=== PATIENT | male | born 1990 | race Two or more races ===

== ENCOUNTER 2017-10-12 16:09 | Inpatient (IN) | payer MEDICAID ==
[~2017-10-12] VITALS: Ht 188 cm; Wt 73.9 kg
[2017-10-12] MEDS ORDERED: HYDROCODONE/APAP 5/325MG 1 EACH TABLET ONE (16:42)
[2017-10-12] MEDS ORDERED: diphenhydrAMINE HCL 25 MG CAPSULE ONE (16:43)
[2017-10-12] MEDS ORDERED: diphenhydrAMINE HCL 25 MG CAPSULE PO ONE (17:00)
[2017-10-12] MEDS ORDERED: HYDROCODONE/APAP 5/325MG 1 EACH TABLET PO ONE (17:00)
[2017-10-12] MEDS ORDERED: LIDOCAINE 1%-EPI 1:100,000 20 ML VIAL ONE (18:18)
[2017-10-12] MEDS ORDERED: VANCOMYCIN 1 GM in IV D5W 250 ML IV ONE (18:30)
[2017-10-12] MEDS ORDERED: IV NS 0.9% 1,000 ML BAG IV ONE (18:30)
[2017-10-12] MEDS ORDERED: PIPERACILLIN /TAZOBACTAM 3.375 G in IV D5W 50 ML IV ONE (18:30)
--- NOTE | 2017-10-12 18:34 | NUR ---
CALLED DR. MERCEDES ROBLEDO, TRANSFERRED CALL TO MATTY HARDEN
[2017-10-12 19:00] LABS: CALCIUM, SERUM 9.2 mg/dL (8.5-10.1); CREATININE 0.8 mg/dL (0.6-1.3); POTASSIUM 3.1 mmol/L (3.5-5.1)
[2017-10-12 19:01] LABS: BASOPHILS % (AUTO) 0.1 % (0.0-2.0); EOSINOPHILS % (AUTO) 0.2 % (0.0-6.0); HEMATOCRIT 44 % (39-51); LYMPHOCYTES # (AUTO) 1.4 /CMM (0.8-4.8); MEAN CORPUSCULAR HEMOGLOBIN 35 PG (26.0-33.0); MEAN CORPUSCULAR HGB CONC 34 g/dl (31.0-36.0); MEAN CORPUSCULAR VOLUME 103 fL (80-96); MONOCYTES # (AUTO) 2.7 /CMM (0.1-1.30); MONOCYTES % (AUTO) 11.5 % (2.0-12.0); NEUTROPHILS # (AUTO) 19.2 /CMM (1.8-8.9); NEUTROPHILS % (AUTO) 82.2 % (43.0-81.0); PLATELET COUNT (AUTO) 266 /CMM (150-450); RDW COEFFICIENT OF VARIATION 13.3 (11.5-15.0); RED BLOOD CELL COUNT(AUTO) 4.28 MIL/uL (4.5-6.0); WHITE BLOOD COUNT (AUTO) 23.4 K/uL (4.3-11.0)
[2017-10-12 19:06] LABS: ALBUMIN 2.7 g/dL (3.4-5.0); BILIRUBIN,DIRECT 0.1 mg/dL (0.0-0.2); BILIRUBIN,TOTAL 0.3 mg/dL (0.2-1.0); TOTAL PROTEIN, SERUM 7.3 g/dL (6.4-8.2)
[2017-10-12] MEDS ORDERED: IOHEXOL-300 100 ML VIAL IV ONE ×2 (19:18→20:54)
[2017-10-12] MEDS ORDERED: IV NS 0.9% 1,000 ML IV PRN (19:29)
[2017-10-12] MEDS ORDERED: MORPHINE SULFATE INJ 2 MG/ML DISP.SYRIN IV PRN (19:30)
[2017-10-12] MEDS ORDERED: ONDANSETRON HCL/PF 4 MG/2 ML VIAL IVP PRN (19:30)
[2017-10-12] MEDS ORDERED: HYDROCODONE/APAP 10/325MG 1 EA TABLET PO PRN (19:30)
[2017-10-12] MEDS ORDERED: HYDROCODONE/APAP 5/325MG 1 EACH TABLET PO PRN (19:30)
[2017-10-12] MEDS ORDERED: MAG HYDROX/AL HYDROX/SIMETH 30 ML UDC PO PRN (19:30)
[2017-10-12] MEDS ORDERED: Z GUARD REMEDY 2 OZ OINT TP PRN (19:30)
[2017-10-12] MEDS ORDERED: MAGNESIUM HYDROXIDE 30 ML UDC PO PRN (19:30)
[2017-10-12] MEDS ORDERED: HYDROMORPHONE INJ 2 MG/ML DISP.SYRIN ONE ×2 (19:48→21:23)
[2017-10-12] MEDS ORDERED: HYDROMORPHONE INJ 2 MG/ML DISP.SYRIN IV ONE (20:00)
[2017-10-12] MEDS ORDERED: ONDANSETRON HCL/PF 4 MG/2 ML VIAL IVP ONE (20:00)
[2017-10-12] MEDS ORDERED: POTASSIUM CHLORIDE 20 MEQ TAB.PRT.SR PO ONE ×2 (20:00→20:09)
--- NOTE | 2017-10-12 21:19 | NUR ---
PT PAIN 12/19, SPOKE WITH Sourav Shi, QUINTON, per sourav admin 0.5mg dilaudid IVP once befor patient is tx to [facility] unit. i place order for 0.5mg dilaudid ivp once as instructed by Sourav Shi, QUINTON. Medicated pt as ordered
[2017-10-12 21:30] VITALS: BP 129/67
[2017-10-12] MEDS ORDERED: HYDROMORPHONE INJ 0.5 MG/0.5 ML SYRINGE IV ONE (21:30)
--- NOTE | 2017-10-12 21:30 | NUR ---
MS RN NOTES RECEIVED PT FROM THE ER VIA WHEELCHAIR, ABLE TO TRANSFER HIMSELF TO BED, SAFELY. PT IS AMBULATORY. PT IS A/O X 4, VERBALLY RESPONSIVE. NO DISTRESS, NO SOB NOTED. RESPIRATION IS EVEN AND UNLABORED. IV SIT BING RFA INTACT AND PATENT, NO S/S OF INFILTRATION NOTED. PT REFUSED BODY CHECK/AND DOESN'T WANT TO CHANGE IN A HOSPITAL GOWN, BUT AGREED TO HAVE PICTURE TAKEN TO LEFT ARM , LEFT ELBOW, RIGHT ELBOW AND LEFT ARM, RISK AND BENEFITS EXPLAINED, BUT PT STILL REFUSED THE REST OF THE BODY CHECK X3. ALL NEEDS ATTENDED AND MET, KEPT COMFORTABLE. SAFETY PRECAUTIONS OBSERVED. CALL LIGHT WITHIN REACH. WILL CONT TO MONITOR.
--- NOTE | 2017-10-12 21:35 | NUR ---
report given top [facility] for admission. transorted pt to ms bed without incidetn
--- NOTE | 2017-10-12 22:00 | NUR ---
LEFT ARM ELEVATED WITH 3 PILLOWS. EXPLAINED TO PT, PT VERBALIZED UNDERSTANDING.
[2017-10-12] MEDS ORDERED: PIPERACILLIN /TAZOBACTAM 3.375 G VIAL IV ONE (23:30)
--- NOTE | 2017-10-12 23:30 | NUR ---
administration of zosyn: new order from is to administer zosyn 3.375gm ivpb, pt is a new admit, rn geriatric bria override the medication. zosyn 3.375gm ivpb administered at this time as ordered.
[2017-10-13] VITALS (12 sets, daily range): BP systolic 110–134; BP diastolic 57–94
[2017-10-13] MEDS: diphenhydrAMINE HCL 25 MG CAPSULE PO PRN ×3 (00:22→21:39)
[2017-10-13] MEDS ORDERED: PIPERACILLIN /TAZOBACTAM 3.375 G in IV NS 0.9% 50 ML IV SCH (05:00)
[2017-10-13] MEDS ORDERED: PIPERACILLIN /TAZOBACTAM 3.375 G VIAL IV ONE (05:13)
--- NOTE | 2017-10-13 06:03 | NUR ---
PLACED A CALL TO [facility], REGARDING ZOSYN NEXT DOSE ADMINISTRATION, SPOKE WITH TONY, PER TONY IT'S OK NOT TO CHANGE THE TIME OF NEXT ADMINISTRATION DOSE , EVEN IF IT WAS GIVEN AT 2330 LAST NIGHT, PER TONY PT'S RENAL FUNCTION IS GOOD, CHARGE NURSE SHIRA MADE AWARE.
[2017-10-13 06:29] LABS: BASOPHILS % (AUTO) 0.1 % (0.0-2.0); EOSINOPHILS % (AUTO) 0.1 % (0.0-6.0); HEMATOCRIT 42 % (39-51); HEMOGLOBIN 14.6 g/dL (13.5-17.5); LYMPHOCYTES # (AUTO) 0.8 /CMM (0.8-4.8); LYMPHOCYTES % (AUTO) 3.3 % (20.0-44.0); MEAN CORPUSCULAR HEMOGLOBIN 35 PG (26.0-33.0); MEAN CORPUSCULAR HGB CONC 35 g/dl (31.0-36.0); MEAN CORPUSCULAR VOLUME 103 fL (80-96); MONOCYTES # (AUTO) 1.7 /CMM (0.1-1.30); MONOCYTES % (AUTO) 7.3 % (2.0-12.0); NEUTROPHILS # (AUTO) 20.6 /CMM (1.8-8.9); NEUTROPHILS % (AUTO) 89.2 % (43.0-81.0); PLATELET COUNT (AUTO) 246 /CMM (150-450); RDW COEFFICIENT OF VARIATION 13.4 (11.5-15.0); RED BLOOD CELL COUNT(AUTO) 4.13 MIL/uL (4.5-6.0)
[2017-10-13 06:31] LABS: CALCIUM, SERUM 8.8 mg/dL (8.5-10.1); CREATININE 0.9 mg/dL (0.6-1.3); PHOSPHORUS 2.6 mg/dL (2.5-4.9); POTASSIUM 3.1 mmol/L (3.5-5.1)
[2017-10-13 06:38] LABS: MAGNESIUM 1.2 mg/dL (1.8-2.4)
--- NOTE | 2017-10-13 06:45 | NUR ---
MS RN NOTES PT IS AWAKE, A/O X 4, VERBALLY RESPONSIVE. NO DISTRESS, NO SOB NOTED. RESPIRATION IS EVEN AND UNLABORED. IV SIT BING RFA INTACT AND PATENT, NO S/S OF INFILTRATION NOTED. FRANCISCA ELEVATED WITH 3 PILLOWS. PT REFUSED SPONGE BATH . ALL NEEDS ATTENDED AND MET, KEPT COMFORTABLE. SAFETY PRECAUTIONS OBSERVED. CALL LIGHT WITHIN REACH. WILL ENDORSE TO NEXT SHIFT FOR LYDIA.
[2017-10-13 06:55] LABS: THYROID STIMULATING HORMONE 1.116 uIU/mL (0.358-3.74)
--- NOTE | 2017-10-13 07:11 | NUR ---
PLACED A CALL TO [facility] , REGARDING PT'S M.2, SPOKE WITH THE PER DIEM PHYSICAL THERAPIST ASSISTANT , HE'LL PAGE ELIOT BIGGS , AWAITING FOR PHLEBOTOMIST'S CALL BACK. ENDORSED TO GERI PACKER ACCORDINGLY.
[2017-10-13] MEDS ORDERED: POTASSIUM CHLORIDE 20 MEQ TAB.PRT.SR PO ONE (07:30)
--- NOTE | 2017-10-13 07:30 | NUR ---
RECEIVED A CALL BACK FROM [facility], FILBERT GROWER RELAYED M.2, RECEIVED AN ORDER FOR MG 4 GRAMS IVPB, NOTED AND CARRIED OUT, ALSO INFORMED ELIOT REGARDING PT'S REQUEST TO HAVE SHOWER, PER FILBERT GROWER NO SHOWER YET FOR NOW UNTIL HE WAS SEEN BY SPECIALIST, ALSO PT IS COMPLAINING OF ANXIETY , NONPHARMACOLOGICAL INTERVENTION RENDERED INEFFECTIVE, PT REQUESTING FOR ANTI ANXIETY MEDICATION, FILBERT GROWER WITH NNO AT THIS TIME.
[2017-10-13] MEDS ORDERED: FEE PK DOSING 1 MIN EA MC ONE (07:33)
--- NOTE | 2017-10-13 07:34 | NUR ---
RECEIVED A CALL BACK FROM [facility], BRICK LAYER RELAYED M.2, RECEIVED AN ORDER FOR MG 4 GRAMS IVPB, NOTED AND CARRIED OUT, ALSO INFORMED ELIOT REGARDING PT'S REQUEST TO HAVE SHOWER, PER BRICK LAYER NO SHOWER YET FOR NOW UNTIL HE WAS SEEN BY SPECIALIST, ALSO PT IS COMPLAINING OF ANXIETY , NONPHARMACOLOGICAL INTERVENTION RENDERED INEFFECTIVE, PT REQUESTING FOR ANTI ANXIETY MEDICATION, BRICK LAYER WITH NNO AT THIS TIME. ENDORSED TO GERI PACKER ACCORDINGLY.
[2017-10-13] MEDS ORDERED: Magnesium 1GM/D5W 100ML PREMIX 100 ML IV SCH (08:00)
--- NOTE | 2017-10-13 08:00 | NUR ---
M/S RN - Assessment Patient awake, A/ O x 4, not in any form of distress, c/o LUE pain but refused [place] and Morphine sulfate. Patient stated "I'm very sensitive to morphine and [place], it makes my body very itchy." Allergies updated on file. IVF Ns at 75 ml/hr infusing well on the RFA, with no signs of infiltration. Will Labs reviewed noted with magnesium 1.2 and potassium 3.1, will replete as ordered. Awaiting for surgical consult for LUE wound/cellulitis. Patient currently on Zosyn and Vanco IV. LUE elevated on pillows. Fall precautions maintained. All needs attended and met. Juan Carlos (father) updated on plan of care. Will continue with current medical management.
[2017-10-13] MEDS: VANCOMYCIN 1 GM in IV D5W 250 ML IV SCH ×3 (08:01→23:25)
[2017-10-13] MEDS: PANTOPRAZOLE 40 MG VIAL IV SCH (08:05)
[2017-10-13] MEDS: DOCUSATE SODIUM 100 MG CAPSULE PO SCH ×2 (08:05→17:04)
[2017-10-13] MEDS: Magnesium 1GM/D5W 100ML PREMIX 100 ML IV SCH ×4 (08:25→11:52)
--- NOTE | 2017-10-13 10:19 | NUR ---
WOUND CARE CONSULT: PT FOLLOWED BY PLASTIC SURGERY TEAM. DEFER TO SURGICAL TEAM FOR WOUND TREATMENT PLAN. WILL SEE PRN. CURRENT PATRICIA SCORE IS 20.
[2017-10-13] MEDS ORDERED: SILVER NITRATE APPLICATOR 1 EA BOX TP ONE (11:00)
[2017-10-13] MEDS ORDERED: LIDOCAINE 1%-EPI 1:100,000 20 ML VIAL TP ONE (11:00)
[2017-10-13] MEDS: ACETAMINOPHEN 325 MG TABLET PO PRN ×2 (11:14→17:59)
--- NOTE | 2017-10-13 11:20 | NUR ---
Social service consult requested by QUINTON Shi for polysubstance drug abuse. Pt. is a 26 year old male who was admitted to [facility] for cellulitis due to IV drug use. SW met with pt. bedside. Pt. is alert and oriented x 4. Pt. informed SW that he doesn't want to speak to her right now and to come back later. SW to follow up later this afternoon to assess pt.
[2017-10-13] MEDS: PIPERACILLIN /TAZOBACTAM 3.375 G in IV NS 0.9% 50 ML IV SCH ×2 (12:00→17:19)
[2017-10-13] MEDS ORDERED: ANESTHESIA TRAY IN PYXIS 1 EA TRAY MC ONE (13:10)
[2017-10-13] MEDS ORDERED: BACITRACIN 50000 UNITS/VIAL ONE ×2 (13:27→14:40)
[2017-10-13] MEDS ORDERED: LIDOCAINE HCL/PF 1% 30 ML SDV ONE (13:27)
[2017-10-13 13:40] LABS: INR 1.06 (0.87-1.13)
[2017-10-13] MEDS ORDERED: MIDAZOLAM HCL 2 MG/2ML VIAL ONE (13:47)
[2017-10-13] MEDS ORDERED: FENTANYL PF 100MCG/2ML AMPUL ONE (13:47)
[2017-10-13] MEDS ORDERED: SUCCINYLCHOLINE CHLORIDE 20 MG/ML VIAL ONE (13:47)
[2017-10-13] MEDS ORDERED: CLINDAMYCIN IV RTU IN D5W 900 MG/50 ML PIGGYBACK IV SCH (14:00)
--- NOTE | 2017-10-13 14:00 | NUR ---
M/S RN - Notes Patient in no acute distress, afebrile, A/O x 4, sent to OR for Incision and drainage of left upper extremity with extensive washout and debridement with Dr. Prosper Epps. All consents signed by patient and pre-operative checklist completed. Saline lock on the RFA is patent, intact, with no signs of infiltration. Endorsed to OR staff accordingly.
[2017-10-13] MEDS ORDERED: LIDOCAINE 1%-EPI 1:100,000 20 ML VIAL ONE (14:04)
[2017-10-13] MEDS ORDERED: BUPIVACAINE 0.25% 75 MG/30 ML VIAL ONE (14:04)
--- NOTE | 2017-10-13 14:05 | NUR ---
M/S RN - Valuables Cellphone and credit card (visa) given to Florinda Haile (girlfriend) [phone].
--- NOTE | 2017-10-13 16:00 | NUR ---
M/S RN - ICU Per OR, patient will be transferred to ICU [id number] for close monitoring.
--- NOTE | 2017-10-13 16:10 | NUR ---
M/S RN - ICU Report given to GERI Gross and all belongings were transferred to ICU.
[2017-10-13] MEDS: CLINDAMYCIN 900 MG in IV NS 0.9% 50 ML IV SCH ×2 (16:48→23:08)
[2017-10-13] MEDS: IV NS 0.9% 1,000 ML IV PRN (17:14)
--- NOTE | 2017-10-13 17:35 | NUR ---
received pt from OR, s/p I and D with washout, alert, follows commands, SR, on RA, uses urinal, no BM, does not want to take any narcotics, wants Tylenol and Xanax only, regular diet, dressing intact, arm is elevate per surgeon, v/s stable, no pain, pt turned and repositioned, friends at the bedside.
[2017-10-13] MEDS: ALPRAZOLAM 0.25 MG TABLET PO SCH (17:58)
--- NOTE | 2017-10-13 20:00 | NUR ---
agriculture worker notes received pts on bed awake alert and responsive able to make needs known , on tele sr on the monitor , on r/a sating 98%, no sob no distress noted , pts s/p i&d debridement and wash out , dressing intact and patent , due meds given as ordered , ivf of ns at 125cc/hr infusing well with r fa g#18 and r hand g#18 intact and patent , uses urinals at this time, arm kept elevated all the time , v/s stable afebrile , will continue to monitor pts , friends at bedside updated with pts current condition .
[2017-10-13] MEDS: ACETAMINOPHEN 325 MG TABLET PO SCH (21:23)
[2017-10-14] VITALS (13 sets, daily range): BP systolic 114–151; BP diastolic 50–114
[2017-10-14] MEDS: PIPERACILLIN /TAZOBACTAM 3.375 G in IV NS 0.9% 50 ML IV SCH ×5 (00:06→23:17)
[2017-10-14] MEDS: ACETAMINOPHEN 325 MG TABLET PO SCH ×4 (00:08→18:15)
[2017-10-14] MEDS: oxyCODONE IR immediate release 5 MG PO PRN (04:36)
[2017-10-14] MEDS: diphenhydrAMINE HCL 25 MG CAPSULE PO PRN (04:40)
[2017-10-14] MEDS: IV NS 0.9% 1,000 ML IV PRN ×2 (05:27→21:14)
[2017-10-14 05:42] LABS: HEMATOCRIT 40 % (39-51); HEMOGLOBIN 13.4 g/dL (13.5-17.5); LYMPHOCYTES # (AUTO) 0.5 /CMM (0.8-4.8); LYMPHOCYTES % (AUTO) 2.4 % (20.0-44.0); MEAN CORPUSCULAR HEMOGLOBIN 36 PG (26.0-33.0); MEAN CORPUSCULAR HGB CONC 34 g/dl (31.0-36.0); MEAN CORPUSCULAR VOLUME 105 fL (80-96); MONOCYTES # (AUTO) 0.7 /CMM (0.1-1.30); NEUTROPHILS # (AUTO) 21.9 /CMM (1.8-8.9); NEUTROPHILS % (AUTO) 94.6 % (43.0-81.0); PLATELET COUNT (AUTO) 227 /CMM (150-450); RDW COEFFICIENT OF VARIATION 13.4 (11.5-15.0); RED BLOOD CELL COUNT(AUTO) 3.78 MIL/uL (4.5-6.0); WHITE BLOOD COUNT (AUTO) 23.1 K/uL (4.3-11.0)
[2017-10-14 06:16] LABS: CALCIUM, SERUM 8.8 mg/dL (8.5-10.1); CREATININE 0.9 mg/dL (0.6-1.3); MAGNESIUM 2.2 mg/dL (1.8-2.4); POTASSIUM 3.9 mmol/L (3.5-5.1)
[2017-10-14 06:32] LABS: BAND % (MANUAL) 7 % (0.0-5.0); LYMPHOCYTES % (MANUAL) 4 % (16-48); MONOCYTES % (MANUAL) 3 % (0-11.0); NEUTROPHILS % (MANUAL) 86 (42-76)
[2017-10-14] MEDS: CLINDAMYCIN 900 MG in IV NS 0.9% 50 ML IV SCH ×3 (06:50→22:43)
--- NOTE | 2017-10-14 06:52 | NUR ---
MODELER NOTES PTS IN BED AWAKE ALERT AND RESPONSIVE , V/S STABLE AFEBRILE LEFT ARMS KEPT ELEVATED ,LEFT ARM DRESSING DONE ORDERED, ALL NEEDS ATTENDED TO CALL LIGHT WITHIN REACH, SAFETY MAINTAINED , NO SIGNIFICANT CHANGE NOTED WILL ENDORSE TO RN DAY SHIFT FOR CONTINUITY OF CARE.
[2017-10-14] MEDS: VANCOMYCIN 1 GM in IV D5W 250 ML IV SCH (08:05)
--- NOTE | 2017-10-14 08:39 | NUR ---
received pt from night, shift, a/o x4, follows commands, SR, RA, urinates in urinal, tolerates diet, v/s stable, no pain, pt turned and repositioned.
[2017-10-14] MEDS: PANTOPRAZOLE 40 MG VIAL IV SCH (09:30)
[2017-10-14] MEDS: DOCUSATE SODIUM 100 MG CAPSULE PO SCH ×2 (09:30→16:39)
[2017-10-14] MEDS: ALPRAZOLAM 0.25 MG TABLET PO SCH ×2 (09:30→16:39)
[2017-10-14] MEDS: NICOTINE PATCH (7MG) 7 MG PATCH.TD24 TD PRN (10:34)
--- NOTE | 2017-10-14 11:06 | NUR ---
pt transferred to [facility], v/s stable, no pain.
--- NOTE | 2017-10-14 11:15 | NUR ---
MS RN NOTES: PT WAS TRANSFERRED FROM ICU, AWAKE, ALERT AND ORIENTED X3. ABLE TO MAKE NEEDS KNOWN. NO ACUTE DISTRESS NOTED. NO COMPLAINTS OF PAIN OR DISCOMFORT AT THIS TIME. BREATHING EVEN AND UNLABORED WITH NORMAL RESPIRATIONS. IV ON RFA G18 AND RIGHT HAND G18 INTACT AND PATENT. VITAL SIGNS WNL. KEPT CLEAN, DRY AND COMFORTABLE. SAFETY AND FALL PRECAUTIONS OBSERVED AND MAINTAINED;. WILL CONTINUE TO MONITOR PT.
[2017-10-14] MEDS: DAKINS QUARTER STRENGTH (0.125%) 480 ML BOTTLE TOP SCH (13:58)
--- NOTE | 2017-10-14 14:30 | NUR ---
MS RN NOTES: PATIENT IN BED, ALERT AND AWAKE. FAMILY AT BEDSIDE DURING THIS TIME. WOUND TREATMENT DONE BY SURY ORO NP. PT ABLE TO TOLERATE PROCEDURE WELL. PICTURES OF LUE TAKEN AND PLACED ON CHART. IV ON RIGHT AC AND RIGHT HAND INTACT AND PATENT, NO SIGNS OF INFILTRATION NOTED. LEFT ARM KEPT ELEVATED. KEPT CLEAN, DRY AND COMFORTABLE. PATIENT REFUSED TO PUT ON DVT PUMPS FOR NOW, EXPLAINED RISKS AND BENEFITS BUT STILL PATIENT REFUSED. WILL CONTINUE TO MONITOR PT.
[2017-10-14] MEDS: VANCOMYCIN 1.25 GM in IV NS 0.9% 500 ML IV SCH ×2 (16:38→23:14)
--- NOTE | 2017-10-14 17:19 | NUR ---
MS RN NOTES: PATIENT NOTED TO HAVE EPISODES OF ANXIETY AND REQUESTED TO HAVE HIS XANAX DOSE INCREASED, DR. LONG NOTIFIED AND ORDERED XANAX 0.5MG TID. ORDER CARRIED OUT. WILL CONTINUE TO MONITOR PT.
--- NOTE | 2017-10-14 18:47 | NUR ---
MS RN NOTES: PATIENT ON BED, ALERT AND AWAKE. PATIENT HAS EPISODES OF ANXIETY AND AGITATION. FAMILY IS REQUESTING TO TALK TO DR. MERCEDES RAMON MD MADE AWARE. STILL AWAITING FOR RESPONSE. IV ON RIGHT AC AND RIGHT HAND INTACT AND PATENT, IVF INFUSING WELL. KEPT CLEAN, DRY AND COMFORTABLE. SAFETY AND FALL PRECAUTIONS OBSERVE AND MAINTAINED. WILL ENDORSE TO GOLF CADDIE FOR LYDIA.
[2017-10-14] MEDS ORDERED: IBUPROFEN 400 MG TABLET PO PRN (21:00)
[2017-10-14] MEDS: KETOROLAC TROMETHAMINE INJ 30 MG/ML VIAL IM PRN (22:35)
[2017-10-14] MEDS: diphenhydrAMINE HCL 50 MG/ML VIAL IV PRN (22:41)
--- NOTE | 2017-10-15 00:17 | NUR ---
RN NOTES RECEIVED PATIENT IN BED COMPLAINING OF SEVERE PAIN. WANTS MEDICATION CHANGE, NO OPIATE AND INCREASE DOSAGE OF BENEDRYL THE PAIN MEDICATION CAUSES HIM TO BE ITCHY. CALLED MD AND OBTAINED ORDER FOR TORADOL 30MG, BENADRYL IV 25MG, IBUPORFEN 800MG. NOTED AND CARRIED OUT. ADMINISTERED MEDS, PAIN MEDS. EFFECTIVE. PATIENT VERBALIZES RELIEF. HELD TYLENOL SINCE IBUPROFEN WAS ALREADY GIVEN. ALERT AND ORIENTED. VERBALLY ABLE TO COMMUNICATE NEEDS. NO DISTRESS NOTED. BREATHING EVEN AND UNLABORED. ROOM AIR TOLERATING WELL. KEPT CLEAN AND DRY WILL CONTINUE TO MONITOR.
[2017-10-15 04:00] VITALS: BP_SYST 126; BP_SYST 134; BP_DIAS 84; BP_DIAS 85
[2017-10-15] MEDS: KETOROLAC TROMETHAMINE INJ 30 MG/ML VIAL IM PRN ×3 (04:29→16:39)
[2017-10-15] MEDS ORDERED: IBUPROFEN 400 MG TABLET PO PRN (05:00)
[2017-10-15] MEDS: PIPERACILLIN /TAZOBACTAM 3.375 G in IV NS 0.9% 50 ML IV SCH ×3 (05:33→17:37)
[2017-10-15] MEDS: diphenhydrAMINE HCL 50 MG/ML VIAL IV PRN ×2 (05:33→22:01)
[2017-10-15] MEDS: ACETAMINOPHEN 325 MG TABLET PO SCH ×4 (06:00→18:00)
[2017-10-15] MEDS: IV NS 0.9% 1,000 ML IV PRN (06:05)
--- NOTE | 2017-10-15 06:06 | NUR ---
RN CLOSING NOTES NO SIGNIFICANT CHANGE OF CONDITION. VITAL SIGNS WNL. PAIN TO RIGHT EXTREMITIES RELIEVED BY TARADOL. REFUSED TO TAKE TYLENOL, IBUPROFEN TAKEN. NEEDS ATTENDED. KEPT CLEAN AND DRY.
[2017-10-15] MEDS: CLINDAMYCIN 900 MG in IV NS 0.9% 50 ML IV SCH ×3 (06:22→23:07)
[2017-10-15 06:42] LABS: EOSINOPHILS % (AUTO) 0.3 % (0.0-6.0); HEMATOCRIT 36 % (39-51); LYMPHOCYTES # (AUTO) 1.1 /CMM (0.8-4.8); LYMPHOCYTES % (AUTO) 6.9 % (20.0-44.0); MEAN CORPUSCULAR HEMOGLOBIN 35 PG (26.0-33.0); MEAN CORPUSCULAR HGB CONC 34 g/dl (31.0-36.0); MEAN CORPUSCULAR VOLUME 104 fL (80-96); MONOCYTES % (AUTO) 6.4 % (2.0-12.0); NEUTROPHILS % (AUTO) 86.4 % (43.0-81.0); PLATELET COUNT (AUTO) 226 /CMM (150-450); RDW COEFFICIENT OF VARIATION 13.8 (11.5-15.0); RED BLOOD CELL COUNT(AUTO) 3.43 MIL/uL (4.5-6.0); WHITE BLOOD COUNT (AUTO) 16.2 K/uL (4.3-11.0)
[2017-10-15 06:58] LABS: CALCIUM, SERUM 8.5 mg/dL (8.5-10.1); CREATININE 0.9 mg/dL (0.6-1.3); POTASSIUM 3.1 mmol/L (3.5-5.1)
--- NOTE | 2017-10-15 07:30 | NUR ---
MS RN NOTE: RECEIVED PATIENT IN BED, ASLEEP AND COMFORTABLE, BUT AROUSABLE WITH TACTILE STIMULI. RESPIRATION IS EVEN AND UNLABORED. NO FACIAL GRIMACING NOTED. HOB ELEVATED. (R) UA IV LINE NOTED PATENT AND INTACT INFUSING NS@125ML/HR. FRANCISCA NOTED WITH KERLIX AND DRESSING WAS DRY AND INTACT. BED ALARMED AND LOCKED AT ALL TIMES. ON CLOSE MONITORING WITH STAFF. CALL LIGHT WITHIN REACH. NEEDS ANTICIPATED.
[2017-10-15 08:00] VITALS: BP 156/83
[2017-10-15] MEDS: VANCOMYCIN 1.25 GM in IV NS 0.9% 500 ML IV SCH ×2 (08:10→16:06)
[2017-10-15 09:29] LABS: BAND % (MANUAL) 8 % (0.0-5.0); LYMPHOCYTES % (MANUAL) 4 % (16-48); MONOCYTES % (MANUAL) 3 % (0-11.0); NEUTROPHILS % (MANUAL) 85 (42-76)
[2017-10-15] MEDS: ALPRAZOLAM 0.25 MG TABLET PO SCH ×3 (09:46→16:33)
[2017-10-15] MEDS: PANTOPRAZOLE 40 MG VIAL IV SCH (09:46)
[2017-10-15] MEDS: DOCUSATE SODIUM 100 MG CAPSULE PO SCH ×2 (09:46→16:37)
[2017-10-15] MEDS: DAKINS QUARTER STRENGTH (0.125%) 480 ML BOTTLE TOP SCH (09:47)
[2017-10-15] MEDS: HYDROGEL DRESSING 90 GM TUBE TP SCH (10:00)
[2017-10-15] MEDS ORDERED: POTASSIUM CHLORIDE 20 MEQ TAB.PRT.SR PO SCH (10:30)
[2017-10-15] MEDS: NICOTINE PATCH (7MG) 7 MG PATCH.TD24 TD PRN (10:32)
[2017-10-15] MEDS ORDERED: TDAP [DIPH/PERTUSSIS/TET] 0.5 ML VIAL IM ONE (11:00)
--- NOTE | 2017-10-15 11:00 | NUR ---
MS RN NOTE: INFORMED DR. MUNOZ RE: THE PATIENT'S PARENTS STATING "OUR SON IS WITHDRAWING FROM ALCOHOL RIGHT NOW. PLEASE INFORM THE DOCTOR ABOUT IT." MD WITH NEW ORDERS, NOTED AND CARRIED OUT. MD WAS ALSO INFORMED THAT PER PATIENT'S REQUEST IF IT'S OK TO GIVE TORADOL VIA IV INSTEAD OF IM BECAUSE IT STINGS. MD AGREED AND GAVE AN ORDER NOTED AND CARRIED OUT.
[2017-10-15] MEDS ORDERED: IOHEXOL-300 100 ML VIAL IV ONE (11:10)
[2017-10-15] MEDS: MULTIVITAMINS,THERAGRAN 1 UDTAB TABLET PO SCH (11:33)
[2017-10-15] MEDS ORDERED: Thiamine 100 MG in IV D5W 50 ML IV SCH (12:00)
[2017-10-15] MEDS: FOLIC ACID 1 MG TABLET PO SCH (12:22)
[2017-10-15 16:00] VITALS: BP 156/76
[2017-10-15] MEDS: LACTOBACILLUS RHAMNOSUS GG 1 EACH CAP.SPRINK PO SCH (16:33)
--- NOTE | 2017-10-15 19:48 | NUR ---
MS RN NOTE: PATIENT IS SEATED ON THE BED WITH HIS FAMILY PRESENT IN THE ROOM. PAIN WAS MANAGED AND PATIENT WAS CALM AND QUIET DURING THE ENTIRE SHIFT. (R) UA IV LINE NOTED INTACT AND PATENT. DR. MUNOZ WAS PAGED PER REQUEST OF THE PATIENT'S PARENTS BECAUSE THEY SPOKE WITH MD, HE SAID THAT HE WILL CHANGE THE PATIENT'S TORADOL TO TRAMADOL. AWAITING FOR MD'S RESPONSE. REPORT GIVEN TO PM SHIFT NURSE FOR CONTINUITY OF CARE AND TO FOLLOW-UP WITH MD RE: THE CHANGE OF TORADOL TO TRAMADOL DISCUSSED WITH THE PATIENT'S PARENTS.
--- NOTE | 2017-10-15 20:00 | NUR ---
MS/RN PATIENT REFUSED VITAL SIGNS AT THIS TIME.
--- NOTE | 2017-10-15 20:07 | NUR ---
MS/RN PATIENT IS AWAKE, ALERT, ORIENTED, COMFORTABLE, NO DISTRESS NOTED, IVF INFUSING WELL, CALL LIGHT IN REACH. WILL MONITOR.
--- NOTE | 2017-10-15 20:49 | NUR ---
/RN VERIFIED WITH FAMILY RE: TRAMADOL. PER FAMILY PATIENT CAN HAVE TRAMADOL. PER FAMILY, PATIENT'S REACTION TO HYDROCODONE WAS ONLY ITCHING AND WAS RELIEVED BY BENADRYL. Addendum: 10/15/17 at 2103 by CHAN SANTACRUZ RN PER FAMILY, THEY TALKED ABOUT IT WITH DR. ANITRA MUNOZ .
[2017-10-15] MEDS: TRAMADOL HCL 50 MG TABLET PO PRN (22:06)
[2017-10-15] MEDS: KETOROLAC TROMETHAMINE INJ 30 MG/ML VIAL IV PRN (23:19)
[2017-10-15] MEDS: VANCOMYCIN 1 GM in IV D5W 250 ML IV SCH (23:50)
[2017-10-16] MEDS: PIPERACILLIN /TAZOBACTAM 3.375 G in IV NS 0.9% 50 ML IV SCH ×4 (00:48→17:48)
[2017-10-16] MEDS: ACETAMINOPHEN 325 MG TABLET PO SCH ×4 (00:49→17:48)
[2017-10-16] MEDS: IV NS 0.9% 1,000 ML IV PRN ×2 (02:47→17:03)
--- NOTE | 2017-10-16 04:53 | NUR ---
MS/RN PER LOW EMISSION AUTOMOBILE DESIGNER, PATIENT REFUSED VITAL SIGNS AT THIS TIME.
[2017-10-16 05:06] VITALS: BP 142/99
[2017-10-16] MEDS: KETOROLAC TROMETHAMINE INJ 30 MG/ML VIAL IV PRN ×3 (05:58→18:48)
[2017-10-16] MEDS: CLINDAMYCIN 900 MG in IV NS 0.9% 50 ML IV SCH (06:50)
--- NOTE | 2017-10-16 07:04 | NUR ---
MS/RN PATIENT IS AWAKE AT THIS TIME, COMFORTABLE, USING HIS IPAD, ALL NEEDS ATTENDED AT THIS TIME. WILL CONTINUE TO MONITOR.
[2017-10-16 07:18] LABS: CALCIUM, SERUM 8.8 mg/dL (8.5-10.1); CREATININE 0.8 mg/dL (0.6-1.3)
[2017-10-16 08:00] VITALS: BP 175/92
[2017-10-16] MEDS: PANTOPRAZOLE 40 MG VIAL IV SCH (08:17)
[2017-10-16] MEDS: FOLIC ACID 1 MG TABLET PO SCH (08:18)
[2017-10-16] MEDS: THIAMINE HCL 100 MG TABLET PO SCH (08:18)
[2017-10-16] MEDS: ALPRAZOLAM 0.25 MG TABLET PO SCH ×3 (08:18→17:06)
[2017-10-16] MEDS: LACTOBACILLUS RHAMNOSUS GG 1 EACH CAP.SPRINK PO SCH ×2 (08:18→17:06)
[2017-10-16] MEDS: MULTIVITAMINS,THERAGRAN 1 UDTAB TABLET PO SCH (08:18)
[2017-10-16] MEDS: VANCOMYCIN 1 GM in IV D5W 250 ML IV SCH (08:24)
[2017-10-16] MEDS: DOCUSATE SODIUM 100 MG CAPSULE PO SCH ×2 (08:24→17:00)
--- NOTE | 2017-10-16 08:24 | NUR ---
MS RN NOTES PATIENT IN BED, AWAKE. A/O X4. BREATHING ON ROOM AIR WITH NO SOB. IVC IN [place] WITH IVF NS INFUSING AT 125ML/HR. FRANCISCA WOUND DRESSING IN PLACE, REPORTED PAIN 2/10 RELIEVE BY POSITIONING. CALL LIGHT WITHIN REACH. WILL CONT TO MONITOR.
[2017-10-16 08:30] LABS: BASOPHILS % (AUTO) 0.3 % (0.0-2.0); HEMATOCRIT 38 % (39-51); HEMOGLOBIN 12.8 g/dL (13.5-17.5); LYMPHOCYTES # (AUTO) 1.6 /CMM (0.8-4.8); LYMPHOCYTES % (AUTO) 17.4 % (20.0-44.0); MEAN CORPUSCULAR HEMOGLOBIN 35 PG (26.0-33.0); MEAN CORPUSCULAR HGB CONC 34 g/dl (31.0-36.0); MEAN CORPUSCULAR VOLUME 103 fL (80-96); MONOCYTES % (AUTO) 10.3 % (2.0-12.0); NEUTROPHILS # (AUTO) 6.7 /CMM (1.8-8.9); PLATELET COUNT (AUTO) 263 /CMM (150-450); RDW COEFFICIENT OF VARIATION 13.9 (11.5-15.0); RED BLOOD CELL COUNT(AUTO) 3.71 MIL/uL (4.5-6.0); WHITE BLOOD COUNT (AUTO) 9.5 K/uL (4.3-11.0)
[2017-10-16] MEDS: HYDROGEL DRESSING 90 GM TUBE TP SCH (09:19)
[2017-10-16] MEDS: DAKINS QUARTER STRENGTH (0.125%) 480 ML BOTTLE TOP SCH (09:19)
[2017-10-16] MEDS: TRAMADOL HCL 50 MG TABLET PO PRN ×3 (09:22→23:15)
[2017-10-16 09:27] VITALS: BP 160/98
[2017-10-16 16:00] VITALS: BP 146/73
--- NOTE | 2017-10-16 18:23 | NUR ---
MS RN CLOSING NOTES PATIENT IS COOPERATIVE, VS REMAINS STABLE, AFEBRILE DURING THE SHIFT. WOUND DRESSING CHANGED TODAY BY QUINTON ORO. FRANCISCA PAIN MANAGED BY PO TYLENOL ATC, PLUS PRN PO TRAMADOL AND PRN IV TORADOL WITH RELIEF. NPO MIDNIGHT, FOR LUE EXTENSIVE WASHOUT AND DEBRIDEMENT TOMORROW BY DR. GIBBONS, PATIENT CONSENTED PROCEDURE, CONSENT FORM PLACE IN THE CHART. CALL LIGHT WITHIN REACH. WILL ENDORSE TO ONCOMING RN.
[2017-10-16 20:00] VITALS: BP 148/81
--- NOTE | 2017-10-16 21:00 | NUR ---
BARBAAR RN NOTES RECEIVED BEDSIDE REPORT FROM AM NURSE.PATIENT IN BED, AWAKE. A/O X4,ON ROOM AIR WITH SPO2 96%,NO SOB NOTED AT THIS TIME. IV LINE IN [place] WITH IVF NS INFUSING AT 125ML/HR. FRANCISCA WOUND DRESSING IN PLACE, REPORTED PAIN 7/10 . FAMILY AT BEDSIDE. FAMILY AND PATIENT ARE REFUSING TO OPEN THE WOUND FOR WOUND CARE AND PICTURE TAKING.PATIENT/FAMILY HAS BEEN ASKED BY ME (PM RN)FOR WOUND CARE MULTIPLE TIMES AND I HAVE BEEN REFUSED EACH TIME. ALL SAFETY MEASURES ARE IMPLEMENTED, BED IN LOW, LOCKED POSITION, CALL LIGHT WITHIN REACH. WILL CONT TO MONITOR.
[2017-10-16] MEDS: diphenhydrAMINE HCL 50 MG/ML VIAL IV PRN (23:15)
[2017-10-16] MEDS: LORAZEPAM INJ 2 MG/ML VIAL IV PRN (23:16)
[2017-10-17] VITALS (7 sets, daily range): BP systolic 152–182; BP diastolic 85–100
[2017-10-17] MEDS: ACETAMINOPHEN 325 MG TABLET PO SCH ×4 (00:23→18:05)
[2017-10-17] MEDS: PIPERACILLIN /TAZOBACTAM 3.375 G in IV NS 0.9% 50 ML IV SCH ×4 (00:23→18:06)
[2017-10-17] MEDS: KETOROLAC TROMETHAMINE INJ 30 MG/ML VIAL IV PRN ×3 (03:23→17:34)
[2017-10-17] MEDS: IV NS 0.9% 1,000 ML IV PRN (03:38)
[2017-10-17] MEDS: LORAZEPAM INJ 2 MG/ML VIAL IV PRN ×3 (06:26→22:06)
--- NOTE | 2017-10-17 06:30 | NUR ---
BARBARA RN NOTES PATIENT IS A/O X4,COOPERATIVE, VS REMAINS STABLE, AFEBRILE DURING THE SHIFT. WOUND DRESSING NOT CHANGED DURING MY SHIFT, PT AND FAMILY REFUSED. FRANCISCA PAIN MANAGED BY PO TYLENOL , PLUS PRN PO TRAMADOL AND PRN IV TORADOL WITH RELIEF. PT WAS NPO MIDNIGHT FOR LUE EXTENSIVE WASHOUT AND DEBRIDEMENT TODAY BY DR. GIBBONS, CONSENT FORM PLACE IN THE CHART. CALL LIGHT WITHIN REACH. WILL ENDORSE TO AM RN FOR SHOT HOLE DRILLER.
[2017-10-17 07:31] LABS: CALCIUM, SERUM 8.8 mg/dL (8.5-10.1); CREATININE 0.9 mg/dL (0.6-1.3); POTASSIUM 3.7 mmol/L (3.5-5.1)
--- NOTE | 2017-10-17 08:16 | NUR ---
RN NOTES PATIENT A/OX3, VERBALLY RESPONSIVE, PATIENT VERBALIZING HE'S ALWAYS IN PAIN. PATIENT IS NPO AT THIS TIME DUE TO THE WASHOUT AND DEBRIDEMENT PROCEDURE SCHEDULED TODAY. TORADOL WAS GIVEN 4 HRS AGO. PATIENT KEPT COMFORTABLE, FRANCISCA AND LORENA COVERED WITH C/D/I DRESSING. NEEDS ATTENDED, CALL LIGHT WITHIN REACH, WILL CONTINUE TO MONITOR.
[2017-10-17] MEDS: LACTOBACILLUS RHAMNOSUS GG 1 EACH CAP.SPRINK PO SCH ×2 (09:00→16:35)
[2017-10-17] MEDS: MULTIVITAMINS,THERAGRAN 1 UDTAB TABLET PO SCH (09:00)
[2017-10-17] MEDS: THIAMINE HCL 100 MG TABLET PO SCH (09:00)
[2017-10-17] MEDS: FOLIC ACID 1 MG TABLET PO SCH (09:00)
[2017-10-17] MEDS: DOCUSATE SODIUM 100 MG CAPSULE PO SCH ×2 (09:00→16:15)
[2017-10-17] MEDS: PANTOPRAZOLE 40 MG VIAL IV SCH (09:49)
[2017-10-17] MEDS: DAKINS QUARTER STRENGTH (0.125%) 480 ML BOTTLE TOP SCH ×2 (09:58→23:43)
[2017-10-17] MEDS: HYDROGEL DRESSING 90 GM TUBE TP SCH (09:58)
[2017-10-17] MEDS: ALPRAZOLAM 0.25 MG TABLET PO SCH ×3 (10:08→16:12)
--- NOTE | 2017-10-17 10:11 | NUR ---
RN NOTES PATIENT SEEN BY DR. IRBY, CONFIRMED IF OK FOR PATIENT TO TAKE XANAX, PER MD ITS OK.
[2017-10-17] MEDS ORDERED: PANTOPRAZOLE 40 MG TABLET.DR PO SCH (10:45)
[2017-10-17] MEDS ORDERED: MIDAZOLAM HCL 2 MG/2ML VIAL ONE (14:02)
[2017-10-17] MEDS ORDERED: LIDOCAINE 1%-EPI 1:100,000 20 ML VIAL ONE (14:03)
[2017-10-17] MEDS ORDERED: BUPIVACAINE 0.5 % PF 150 MG/30 ML VIAL ONE (14:03)
[2017-10-17] MEDS ORDERED: BACITRACIN 50000 UNITS/VIAL ONE (14:35)
[2017-10-17] MEDS ORDERED: diphenhydrAMINE HCL 50 MG/ML VIAL ONE (15:11)
[2017-10-17] MEDS: TRAMADOL HCL 50 MG TABLET PO PRN (16:12)
[2017-10-17] MEDS: oxyCODONE IR immediate release 5 MG PO PRN ×2 (16:36→22:06)
[2017-10-17] MEDS: diphenhydrAMINE HCL 50 MG/ML VIAL IV PRN ×2 (16:36→22:06)
--- NOTE | 2017-10-17 16:50 | NUR ---
RN NOTES PATIENT CAME BACK FROM OR, AGITATED AND ANXIOUS. PATIENT TRIED TO GET OUT OF THE GURNEY BY HIMSELF, EVEN THOUGH RECOVERY NURSES TOLD HIM TO WAIT. RECEIVED REPORT FROM RECOVERY NURSES. PATIENT A/OX3, NO RESPIRATORY DISTRESS NOTED, VITALS MONITORED, BP ELEVATED. PATIENT DENIES CHEST PAIN, BUT VERBALIZES PAIN ON HIS LEFT ELBOW, 10/10 AND FEELING VERY ANXIOUS. PATIENT GIVEN MEDICATIONS WITH SOME TIME APART, EVEN THOUGH PATIENT AND DAD IS REQUESTING FOR ALL THE MEDICATIONS AT ONCE, INFORMED THEM OF POSSIBILITY OF OVERDOSE IF ALL MEDICATIONS ARE GIVEN AT ONCE. PATIENT WILL BE MONITORED CLOSELY, VS MONITORED Q15 MINS.
--- NOTE | 2017-10-17 19:00 | NUR ---
RN NOTES PATIENT'S LEFT ELBOW PACKED WITH DAKINS MOISTENED GAUZE, AND COVERED WITH ABD PAD AND KERLIX WITH DR. AMIN'S INSTRUCTIONS, DUE TO DRESSING SOILED WITH BLOOD. PATIENT NON-COMPLIANT, LEFT ARM ELEVATED WITH 3 PILLOWS. PATIENT KEPT REMOVING BLOOD PRESSURE CUFF ON HIS LEG, GETS IRRITATED. PATIENT'S COMPLAINING OF PAIN, MEDICATIONS GIVEN ORDERED. NEEDS ATTENDED AND MET, VITALS STABLE, CALL LIGHT WITHIN REACH, ENDORSED TO AWNING SPREADER FOR LYDIA.
--- NOTE | 2017-10-17 20:05 | NUR ---
BARBARA RN NOTES RECEIVED BEDSIDE REPORT FROM AM NURSE.PATIENT IN BED, AWAKE. A/O X4,ON ROOM AIR WITH SPO2 96%,NO SOB NOTED AT THIS TIME. IV LINE IN LORE[place] SL IS INTACT, PATIENT. FRANCISCA WOUND DRESSING IN PLACE, REPORTED PAIN 7/10 . FAMILY AT BEDSIDE. ALL SAFETY MEASURES ARE IMPLEMENTED, BED IN LOW, LOCKED POSITION, CALL LIGHT WITHIN REACH. WILL CONT TO MONITOR.
[2017-10-18] MEDS: PIPERACILLIN /TAZOBACTAM 3.375 G in IV NS 0.9% 50 ML IV SCH ×5 (00:32→23:05)
[2017-10-18] MEDS: ACETAMINOPHEN 325 MG TABLET PO SCH ×5 (00:33→23:05)
[2017-10-18] MEDS: TRAMADOL HCL 50 MG TABLET PO PRN ×2 (00:34→16:26)
[2017-10-18 04:00] VITALS: BP 134/95
[2017-10-18] MEDS: LORAZEPAM INJ 2 MG/ML VIAL IV PRN ×3 (04:27→21:14)
[2017-10-18] MEDS: KETOROLAC TROMETHAMINE INJ 30 MG/ML VIAL IV PRN ×3 (04:28→23:14)
[2017-10-18] MEDS: diphenhydrAMINE HCL 50 MG/ML VIAL IV PRN ×3 (06:14→20:08)
[2017-10-18] MEDS: oxyCODONE IR immediate release 5 MG PO PRN ×3 (06:15→20:08)
[2017-10-18 06:39] LABS: CALCIUM, SERUM 8.6 mg/dL (8.5-10.1); CREATININE 0.9 mg/dL (0.6-1.3); POTASSIUM 3.7 mmol/L (3.5-5.1)
[2017-10-18 08:00] VITALS: BP 149/81
[2017-10-18] MEDS: DOCUSATE SODIUM 100 MG CAPSULE PO SCH ×2 (09:00→16:37)
--- NOTE | 2017-10-18 10:30 | NUR ---
new swelling noted on lt elbow area-dr. sorto in room and says possible hematoma.
[2017-10-18] MEDS: FOLIC ACID 1 MG TABLET PO SCH (10:32)
[2017-10-18] MEDS: LACTOBACILLUS RHAMNOSUS GG 1 EACH CAP.SPRINK PO SCH ×2 (10:32→18:04)
[2017-10-18] MEDS: ALPRAZOLAM 0.25 MG TABLET PO SCH ×3 (10:32→17:00)
[2017-10-18] MEDS: MULTIVITAMINS,THERAGRAN 1 UDTAB TABLET PO SCH (10:32)
[2017-10-18] MEDS: PANTOPRAZOLE 40 MG TABLET.DR PO SCH (10:32)
[2017-10-18] MEDS: THIAMINE HCL 100 MG TABLET PO SCH (10:32)
[2017-10-18] MEDS: DAKINS QUARTER STRENGTH (0.125%) 480 ML BOTTLE TOP SCH (10:42)
[2017-10-18] MEDS: HYDROGEL DRESSING 90 GM TUBE TP SCH (10:42)
--- NOTE | 2017-10-18 11:00 | NUR ---
rt. upper arm iv removed and new angio rt. forearm placed,gauge #22.
--- NOTE | 2017-10-18 14:03 | NUR ---
routine xanax held as pt. prefers ativan instead.
[2017-10-18 16:00] VITALS: BP 131/73
--- NOTE | 2017-10-18 18:00 | NUR ---
eve. correa held as pt. will soon request iv ativan.fentanyl patch to start.family at bedside all day.
[2017-10-18] MEDS: FENTANYL TD PATCH (25 MCG/HR) 25 MCG/HR PATCH.TD72 TD SCH (18:05)
--- NOTE | 2017-10-18 18:30 | NUR ---
medicated with prns ativan,oxy-ir and ultram and toradol.
[2017-10-18 20:00] VITALS: BP 135/75
[2017-10-19] MEDS: TRAMADOL HCL 50 MG TABLET PO PRN ×3 (02:02→16:13)
[2017-10-19] MEDS: diphenhydrAMINE HCL 50 MG/ML VIAL IV PRN ×3 (03:16→17:19)
[2017-10-19] MEDS: oxyCODONE IR immediate release 5 MG PO PRN ×3 (03:16→17:19)
[2017-10-19 04:00] VITALS: BP 151/84
[2017-10-19] MEDS: ACETAMINOPHEN 325 MG TABLET PO SCH ×3 (05:04→17:18)
[2017-10-19] MEDS: PIPERACILLIN /TAZOBACTAM 3.375 G in IV NS 0.9% 50 ML IV SCH ×3 (05:04→18:36)
[2017-10-19] MEDS: KETOROLAC TROMETHAMINE INJ 30 MG/ML VIAL IV PRN ×3 (05:53→20:33)
[2017-10-19 06:12] LABS: BASOPHILS % (AUTO) 0.2 % (0.0-2.0); HEMATOCRIT 32 % (39-51); LYMPHOCYTES # (AUTO) 3.1 /CMM (0.8-4.8); LYMPHOCYTES % (AUTO) 22.5 % (20.0-44.0); MEAN CORPUSCULAR HEMOGLOBIN 35 PG (26.0-33.0); MEAN CORPUSCULAR HGB CONC 34 g/dl (31.0-36.0); MEAN CORPUSCULAR VOLUME 103 fL (80-96); MONOCYTES # (AUTO) 0.8 /CMM (0.1-1.30); MONOCYTES % (AUTO) 5.9 % (2.0-12.0); NEUTROPHILS # (AUTO) 9.7 /CMM (1.8-8.9); NEUTROPHILS % (AUTO) 70.4 % (43.0-81.0); PLATELET COUNT (AUTO) 457 /CMM (150-450); RDW COEFFICIENT OF VARIATION 13.7 (11.5-15.0); RED BLOOD CELL COUNT(AUTO) 3.12 MIL/uL (4.5-6.0); WHITE BLOOD COUNT (AUTO) 13.7 K/uL (4.3-11.0)
[2017-10-19] MEDS: LORAZEPAM INJ 2 MG/ML VIAL IV PRN ×3 (06:12→20:33)
[2017-10-19 06:35] LABS: CALCIUM, SERUM 8.8 mg/dL (8.5-10.1); POTASSIUM 3.6 mmol/L (3.5-5.1)
--- NOTE | 2017-10-19 07:40 | NUR ---
RN OPENING NOTE RECEIVED PT. PT IS STABLE AND RESTING IN BED. NO S/S OF RESP DISTRESS. PT HAS C/O PAIN ON LEFT ARM, IN AREAS OF UE WOUNDS. DRESSING CHANGE TO BE PERFORMED IN AM FOLLOWING ADMIN OF PO PAIN MEDICATION. IV ACCESS LOCATED ON LFA, 22G CURRENTLY SL. SAFETY MEASURES IN PLACE, CALL LIGHT WITHIN REACH. WILL CONTINUE TO MONITOR.
[2017-10-19 08:00] VITALS: BP 129/59
[2017-10-19] MEDS: LACTOBACILLUS RHAMNOSUS GG 1 EACH CAP.SPRINK PO SCH ×2 (08:17→16:13)
[2017-10-19] MEDS: MULTIVITAMINS,THERAGRAN 1 UDTAB TABLET PO SCH (08:17)
[2017-10-19] MEDS: THIAMINE HCL 100 MG TABLET PO SCH (08:17)
[2017-10-19] MEDS: PANTOPRAZOLE 40 MG TABLET.DR PO SCH (08:17)
[2017-10-19] MEDS: FOLIC ACID 1 MG TABLET PO SCH (08:17)
[2017-10-19] MEDS: DOCUSATE SODIUM 100 MG CAPSULE PO SCH ×2 (08:17→16:13)
[2017-10-19] MEDS: ALPRAZOLAM 0.25 MG TABLET PO SCH ×3 (08:18→16:14)
[2017-10-19] MEDS: HYDROGEL DRESSING 90 GM TUBE TP SCH (08:25)
[2017-10-19 12:00] VITALS: BP 130/62
--- NOTE | 2017-10-19 12:30 | NUR ---
RN NOTES DRESSING CHANGE PERFORMED. PT GIVEN PRHN TORADOL PRIOR TO DRESSING CHANGE DUE TO RELATED PAIN. WILL CONTINUE TO MONITOR.
[2017-10-19 16:00] VITALS: BP 120/67
--- NOTE | 2017-10-19 19:31 | NUR ---
RN CLOSING NOTES ALL PT NEEDS ANTICIPATED AND MET. SAFETY MEASURES IN PLACE, CALL LIGHT IN REACH. WILL ENDORSE TO SNUFF BLENDER FOR LYDIA.
[2017-10-19 20:00] VITALS: BP 124/72
--- NOTE | 2017-10-19 20:00 | NUR ---
BARBARA RN NOTES RECEIVED BEDSIDE REPORT FROM AM NURSE.PATIENT IN BED, AWAKE. A/O X4,ON ROOM AIR WITH SPO2 96%,NO SOB NOTED AT THIS TIME. IV LINE IN RFA 20G SL IS INTACT, PATIENT. FRANCISCA WOUND DRESSING IN PLACE, REPORTED PAIN 7/10 . FAMILY AT BEDSIDE. ALL SAFETY MEASURES ARE IMPLEMENTED, BED IN LOW, LOCKED POSITION, CALL LIGHT WITHIN REACH. WILL CONT TO MONITOR.
[2017-10-20] MEDS: oxyCODONE IR immediate release 5 MG PO PRN ×4 (00:36→18:49)
[2017-10-20] MEDS: ACETAMINOPHEN 325 MG TABLET PO SCH ×5 (00:37→23:00)
[2017-10-20] MEDS: diphenhydrAMINE HCL 50 MG/ML VIAL IV PRN ×4 (00:37→18:48)
[2017-10-20] MEDS: PIPERACILLIN /TAZOBACTAM 3.375 G in IV NS 0.9% 50 ML IV SCH ×5 (00:37→23:00)
[2017-10-20 04:00] VITALS: BP 130/62
[2017-10-20] MEDS: LORAZEPAM INJ 2 MG/ML VIAL IV PRN ×3 (04:35→19:57)
[2017-10-20] MEDS: TRAMADOL HCL 50 MG TABLET PO PRN ×3 (04:36→19:57)
[2017-10-20 06:41] LABS: CALCIUM, SERUM 8.7 mg/dL (8.5-10.1); POTASSIUM 3.9 mmol/L (3.5-5.1)
--- NOTE | 2017-10-20 07:43 | NUR ---
MS RN NOTES: RECEIVED PT ON BED ALERT AND AWAKE, NO ACUTE DISTRESS NOTED. NO COMPLAINTS OF PAIN OR DISCOMFORT AT THIS TIME. NO SOB NOTED. IV ON RFA G20 INTACT AND PATENT. CALL LIGHT PLACED WITHIN REACH. KEPT CLEAN, DRY AND COMFORTABLE. SAFETY AND FALL PRECAUTIONS OBSERVED AND MAINTAINED. WILL CONTINUE TO MONITOR PT.
[2017-10-20 07:52] LABS: BASOPHILS # (AUTO) 0.1 /CMM (0.0-0.2); BASOPHILS % (AUTO) 0.7 % (0.0-2.0); EOSINOPHILS % (AUTO) 1.3 % (0.0-6.0); HEMATOCRIT 28 % (39-51); HEMOGLOBIN 9.9 g/dL (13.5-17.5); LYMPHOCYTES # (AUTO) 2.5 /CMM (0.8-4.8); LYMPHOCYTES % (AUTO) 26.4 % (20.0-44.0); MEAN CORPUSCULAR HEMOGLOBIN 36 PG (26.0-33.0); MEAN CORPUSCULAR HGB CONC 36 g/dl (31.0-36.0); MEAN CORPUSCULAR VOLUME 101 fL (80-96); MONOCYTES # (AUTO) 0.7 /CMM (0.1-1.30); NEUTROPHILS # (AUTO) 5.9 /CMM (1.8-8.9); NEUTROPHILS % (AUTO) 63.6 % (43.0-81.0); PLATELET COUNT (AUTO) 445 /CMM (150-450); RDW COEFFICIENT OF VARIATION 13.3 (11.5-15.0); RED BLOOD CELL COUNT(AUTO) 2.76 MIL/uL (4.5-6.0); WHITE BLOOD COUNT (AUTO) 9.3 K/uL (4.3-11.0)
[2017-10-20 08:00] VITALS: BP 134/85
[2017-10-20] MEDS: ALPRAZOLAM 0.25 MG TABLET PO SCH ×3 (08:41→16:39)
[2017-10-20] MEDS: PANTOPRAZOLE 40 MG TABLET.DR PO SCH (08:41)
[2017-10-20] MEDS: THIAMINE HCL 100 MG TABLET PO SCH (08:41)
[2017-10-20] MEDS: LACTOBACILLUS RHAMNOSUS GG 1 EACH CAP.SPRINK PO SCH ×2 (08:41→16:39)
[2017-10-20] MEDS: MULTIVITAMINS,THERAGRAN 1 UDTAB TABLET PO SCH (08:41)
[2017-10-20] MEDS: DOCUSATE SODIUM 100 MG CAPSULE PO SCH ×2 (08:41→16:39)
[2017-10-20] MEDS: FOLIC ACID 1 MG TABLET PO SCH (08:41)
[2017-10-20] MEDS: KETOROLAC TROMETHAMINE INJ 30 MG/ML VIAL IV PRN ×2 (08:42→16:39)
[2017-10-20] MEDS: DAKINS QUARTER STRENGTH (0.125%) 480 ML BOTTLE TOP SCH (08:46)
[2017-10-20] MEDS: HYDROGEL DRESSING 90 GM TUBE TP SCH (08:47)
[2017-10-20 16:00] VITALS: BP 137/74
--- NOTE | 2017-10-20 16:45 | NUR ---
MS RN NOTES: PATIENT STATED THAT HE IS HAVING EPISODES OF DEPRESSION. PATIENT AND FAMILY IS REQUESTING FOR A PSYCH CONSULT, DR. LONG NOTIFIED.
--- NOTE | 2017-10-20 18:28 | NUR ---
MS RN NOTES: PATIENT ON BED AWAKE, NO ACUTE DISTRESS NOTED. FAMILY AT BEDSIDE DURING THIS TIME. STILL COMPLAINING OF LEFT ARM PAIN, PRN PAIN MEDS GIVEN ORDERED. IV ON RAC G20 INTACT AND PATENT, FLUSHING WELL. KEPT CLEAN, DRY AND COMFORTABLE. SAFETY AND FALL PRECAUTIONS OBSERVED AND MAINTAINED. CALL LIGHT PLACED WITHIN REACH. WILL ENDORSE TO FLEXOGRAPHIC PRESS PLATE SETTER FOR CONTINUITY OF CARE.
--- NOTE | 2017-10-20 21:15 | NUR ---
RN NOTES RECEIVED PATIENT FROM BARBARA FOR LUE CELLULITIS.; TRANSFERRED VIA HOSPITAL BED. PATIENT AO X 3, ABLE TO MAKE NEEDS KNOWN. AMBULATORY WITH STEADY GAIT; SMOKER; MULTIPLE DRUG USE. LUE WITH DRESSING INTACT. NO ACUTE DISTRESS NOTED. 6/10 PAIN ON LUE. IV SITE PATENT, INTACT; FLUSHED. SAFETY REMINDERS GIVEN. BED PUT ON LOWEST LEVEL WITH BILATERAL UPPER SIDE RAILS UP. CALL ROUSE WITHIN EASY REACH. WILL CONTINUE TO MONITOR. FAMILY AT BEDSIDE.
[2017-10-20 21:30] VITALS: BP 130/77
--- NOTE | 2017-10-20 21:47 | NUR ---
RN NOTES RECEIVED PATIENT AWAKE IN BED WITH FAMILY AT BEDSIDE. NO DISTRESS NOTED, ROOM AIR WELL TOLERATED. ALERT AND ORIENTED. ABLE TO VERBALIZE NEEDS. COMPLAINED OF PAIN 8/10, ADMINISTERED ATIVAN 1MG AND GAVE ULTRAM 50MG WITH HELP. TRANSFERRED TO [facility] RM 314 IN STABLE CONDITION. VITAL SIGNS WNL. GAVE ENDORSEMENT TO RN HOLLI GUERRERO.
[2017-10-20 21:50] VITALS: BP 130/77
[2017-10-21] MEDS: diphenhydrAMINE HCL 50 MG/ML VIAL IV PRN ×4 (00:51→20:19)
[2017-10-21] MEDS: oxyCODONE IR immediate release 5 MG PO PRN ×4 (00:52→20:35)
[2017-10-21] MEDS: TRAMADOL HCL 50 MG TABLET PO PRN ×3 (02:10→17:51)
[2017-10-21] MEDS: LORAZEPAM INJ 2 MG/ML VIAL IV PRN ×4 (02:10→21:16)
[2017-10-21] MEDS: PIPERACILLIN /TAZOBACTAM 3.375 G in IV NS 0.9% 50 ML IV SCH ×3 (05:50→18:34)
[2017-10-21] MEDS: ACETAMINOPHEN 325 MG TABLET PO SCH ×3 (05:50→17:50)
--- NOTE | 2017-10-21 06:39 | NUR ---
RN NOTES PATIENT AWAKE. RESPIRATIONS EVEN. MONITORED FOR PAIN. NEEDS ATTENDED. SAFETY PRECAUTIONS AND COMFORT MEASURES IN PLACE. WILL GIVE REPORT TO DAY SHIFT FOR CONTINUITY OF CARE. PATIENT REQUESTING TO SMOKE AT THIS TIME. PATIENT WAS ADVISED TO WAIT FOR STAFF MEMBER TO ACCOMPANY HIM.
[2017-10-21 08:00] VITALS: BP 126/75
--- NOTE | 2017-10-21 08:00 | NUR ---
MS RN NOTES PATIENT IN BED RESTING NO SOB OR ACUTE DISTRESS NOTED. PERIPHERAL IV INTACT, PATENT. BED IN LOW LOCKED POSITION. CALL LIGHT WITHIN REACH. WILL CONTINUE TO MONITOR.
[2017-10-21] MEDS: THIAMINE HCL 100 MG TABLET PO SCH (08:19)
[2017-10-21] MEDS: FOLIC ACID 1 MG TABLET PO SCH (08:19)
[2017-10-21] MEDS: LACTOBACILLUS RHAMNOSUS GG 1 EACH CAP.SPRINK PO SCH ×2 (08:19→17:50)
[2017-10-21] MEDS: PANTOPRAZOLE 40 MG TABLET.DR PO SCH (08:20)
[2017-10-21] MEDS: DOCUSATE SODIUM 100 MG CAPSULE PO SCH ×2 (08:21→17:00)
[2017-10-21] MEDS: MULTIVITAMINS,THERAGRAN 1 UDTAB TABLET PO SCH (08:24)
[2017-10-21] MEDS: ALPRAZOLAM 0.25 MG TABLET PO SCH ×3 (09:26→18:34)
[2017-10-21] MEDS: HYDROGEL DRESSING 90 GM TUBE TP SCH (10:47)
[2017-10-21] MEDS: DAKINS QUARTER STRENGTH (0.125%) 480 ML BOTTLE TOP SCH (10:47)
[2017-10-21 16:00] VITALS: BP 130/70
[2017-10-21] MEDS: FENTANYL TD PATCH (25 MCG/HR) 25 MCG/HR PATCH.TD72 TD SCH (17:50)
--- NOTE | 2017-10-21 19:41 | NUR ---
MS RN NOTES PATIENT IN BED RESTING NO SOB OR ACUTE DISTRESS NOTED. ALL DUE MEDICATIONS ADMINISTERED. ALL NEEDS MET. ENDORSED TO PM SHIFT.
--- NOTE | 2017-10-21 19:45 | NUR ---
MS/RN OPENING NOTES PT AWAKE, FAMILY BEDSIDE. ON ROOM AIR, BREATHING EVEN AND UNLABORED. C/O PAIN TO LEFT ARM, DEMANDING PAIN MEDICATION. EXPLAINED TO PT THAT WILL CHECK COMPUTER TO SEE WHAT IS AVAILABLE. IV TO RAC PATENT AND INTACT. BED REMAINS IN LOW/LOCKED POSITION WITH CALL LIGHT IN REACH. SIDE RAILS UPX2. WILL CONTINUE TO MONITOR
[2017-10-21 20:00] VITALS: BP 115/71
--- NOTE | 2017-10-21 20:00 | NUR ---
MS/RN NOTES PT WENT DOWN TO SMOKE, ACCOMPANIED BY FIRMWARE SOFTWARE VERIFICATION ENGINEER.
--- NOTE | 2017-10-21 20:35 | NUR ---
MS/RN NOTES PT C/O PAIN 11/18 TO LUE. ADMINISTERED OXY IR 10 MG ORDERED. WILL MONITOR FOR EFFECTIVENESS.
--- NOTE | 2017-10-21 21:20 | NUR ---
MS/RN NOTES PT VERY ANXIOUS, RESTLESS AND AGITATED. ADMINISTERED PRN ATIVAN ORDERED. WILL MONITOR
--- NOTE | 2017-10-21 22:00 | NUR ---
MS/RN NOTES PT WENT DOWN TO SMOKE, ACCOMPANIED BY SECURITY ADMINISTRATOR. EXPLAINED TO PT THAT THIS WILL BE THE LAST SMOKE BREAK. VERBALIZED UNDERSTANDING.
[2017-10-21] MEDS: MIRTAZAPINE 15 MG TABLET PO SCH (22:37)
[2017-10-22] MEDS: PIPERACILLIN /TAZOBACTAM 3.375 G in IV NS 0.9% 50 ML IV SCH ×4 (00:12→18:04)
[2017-10-22] MEDS: oxyCODONE IR immediate release 5 MG PO PRN ×6 (00:18→20:42)
--- NOTE | 2017-10-22 00:20 | NUR ---
MS/RN NOTES PT STILL C/O SHARP THROBBING PAIN TO LUE 7-11/18, PT VERY AGITATED AND CUSSING AT STAFF. NOTIFIED FLUORESCENT LAMP REPLACER. ADMINISTERED OXY IR 5MG FOR BREAKTHROUGH PAIN. WILL MONITOR FOR EFFECTIVENESS.
[2017-10-22] MEDS: ACETAMINOPHEN 325 MG TABLET PO SCH ×4 (00:32→18:04)
[2017-10-22] MEDS: diphenhydrAMINE HCL 50 MG/ML VIAL IV PRN ×4 (02:44→20:42)
[2017-10-22] MEDS: LORAZEPAM INJ 2 MG/ML VIAL IV PRN ×4 (03:39→23:13)
--- NOTE | 2017-10-22 04:56 | NUR ---
MS/RN NOTES PT ASLEEP. APPEARS COMFORTABLE. AROUSABLE TO NAME AND TOUCH. WILL HOLD OFF ON ADMINISTRATION OF ULTRAM. PT AGREED.
[2017-10-22] MEDS: TRAMADOL HCL 50 MG TABLET PO PRN (06:42)
--- NOTE | 2017-10-22 07:00 | NUR ---
MS/RN CLOSING NOTES PT AWAKE, GIRLFRIEND AT BEDSIDE. ON ROOM AIR, BREATHING EVEN AND UNLABORED. STILL WITH C/O PAIN TO LEFT ARM. PRN MEDICATIONS ADMINISTERED THROUGHOUT SHIFT ORDERED. ALL NEEDS MET, HOWEVER PT STILL EASILY AGITATED. LUE DRESSING C/D/I, PT REFUSED WOUND CARE. ELEVATED ON PILLOW. IV TO RAC PATENT AND INTACT. TRIED TO MAKE PT COMFORTABLE POSSIBLE THROUGHOUT SHIFT. BED REMAINS IN LOW/LOCKED POSITION WITH CALL LIGHT IN REACH. SIDE RAILS UPX2. ENDORSED TO DAY SHIFT RN LYDIA.
--- NOTE | 2017-10-22 07:25 | NUR ---
RN INITIAL NOTES: PATIENT RESTING IN BED. NONLABORED BREATHING NOTED.IV SITE ON RIGHT AC PATENT AND INTACT. BED IN LOWEST LOCKED POSITION. CALL LIGHT WITHIN REACH
[2017-10-22 08:00] VITALS: BP 129/85
[2017-10-22] MEDS: DOCUSATE SODIUM 100 MG CAPSULE PO SCH ×3 (09:00→17:00)
--- NOTE | 2017-10-22 09:00 | NUR ---
RN NOTES: PATIENT DENYING FEELINGS OF ITCHINES. NONLABORED BREATHING NOTED ON ROOM AIR. SPO2 WNL ON RA
[2017-10-22] MEDS: PANTOPRAZOLE 40 MG TABLET.DR PO SCH (09:26)
[2017-10-22] MEDS: LACTOBACILLUS RHAMNOSUS GG 1 EACH CAP.SPRINK PO SCH ×2 (09:26→18:03)
[2017-10-22] MEDS: FOLIC ACID 1 MG TABLET PO SCH (09:26)
[2017-10-22] MEDS: MULTIVITAMINS,THERAGRAN 1 UDTAB TABLET PO SCH (09:26)
[2017-10-22] MEDS: ALPRAZOLAM 0.25 MG TABLET PO SCH ×3 (09:27→18:04)
[2017-10-22] MEDS: THIAMINE HCL 100 MG TABLET PO SCH (09:27)
[2017-10-22 10:21] VITALS: BP 126/72
--- NOTE | 2017-10-22 11:00 | NUR ---
RN NOTES: PATIENT STATES FEELING LESS ANXIOUS. PATIENT ENCOURAGED TO EXPRESS FEELINGS AND EMOTIONS. NO SHARP OBJECTS AT BEDSIDE. PATIENT DENYING SI AND HI
[2017-10-22] MEDS: HYDROGEL DRESSING 90 GM TUBE TP SCH (12:53)
[2017-10-22] MEDS: DAKINS QUARTER STRENGTH (0.125%) 480 ML BOTTLE TOP SCH (12:54)
--- NOTE | 2017-10-22 14:12 | NUR ---
PER JUSTYN BOWDEN TO GIVE TORADOL 30 MG IV Q 6 HOURS PRN. VERBAL READBACK DONE DR WEN NOTIFIED OF MED ORDER WELL CURRENT PAIN REGIMEN
[2017-10-22 14:31] VITALS: BP 127/72
--- NOTE | 2017-10-22 15:00 | NUR ---
RN NOTES: PATIENT DENYING FEELINGS OF ITCHINES. NONLABORED BREATHING NOTED ON ROOM AIR. SPO2 WNL ON RA
[2017-10-22 16:00] VITALS: BP_SYST 101; BP_SYST 123; BP_DIAS 74; BP_DIAS 75
--- NOTE | 2017-10-22 17:00 | NUR ---
RN NOTES: PATIENT STATES FEELING LESS ANXIOUS. PATIENT ENCOURAGED TO EXPRESS FEELINGS AND EMOTIONS. NO SHARP OBJECTS AT BEDSIDE. PATIENT DENYING SI AND HI
[2017-10-22 18:10] VITALS: BP 144/87
--- NOTE | 2017-10-22 18:23 | NUR ---
PATIENT REFUSING COLACE. BENEFITS AND RISKS EXPLAINED. PATIENT DENYING CONSTIPATION
--- NOTE | 2017-10-22 19:25 | NUR ---
RN CLOSING NOTES: PATIENT RESTING IN BED. NONLABORED BREATHING NOTED.IV SITE ON RIGHT AC PATENT AND INTACT. DENYING ANXIOUSNESS AT THE MOMENT. DENYING SI AND HI. NO SHARP OBJECTS AT THE BEDSIDE. BED IN LOWEST LOCKED POSITION. CALL LIGHT WITHIN REACH. WOUND CARE DONE THROUGHOUT SHIFT. WILL ENDORSE TO NEXT SHIFT
[2017-10-22 20:00] VITALS: BP 121/80
--- NOTE | 2017-10-22 20:00 | NUR ---
MS GROCERY DEPARTMENT MANAGER INITIAL NOTES RECEIVED PT IN BED JUST CAME BACK FROM SMOKING DOWNSTAIRS ACCOMPANIED BY LOUISE. DRESSING STILL INTACT. HE'S AWARE OF HIS MEDICATION BUT I SPOKE TO HIM THAT HIS MEDICATION IS NOT A ROUTINE , ITS PRN NEEDED HE SHOWED ME THE LIST AND TIME BUT I TOLD HIM WE WILL FOLLOWED WHAT IS ORDERED AND WHAT TIME THE LAST GIVEN. HE STATED "OK". KEPT HIM COMFORTABLE AT ALL TIMES. WHILE TALKING TO HIM NOTED NO SIGNS OF ANY DISCOMFORT. WILL CONTINUE TO MONITOR.
[2017-10-22] MEDS: MIRTAZAPINE 15 MG TABLET PO SCH (21:58)
[2017-10-22] MEDS: KETOROLAC TROMETHAMINE INJ 30 MG/ML VIAL IV PRN (21:59)
[2017-10-23] MEDS: PIPERACILLIN /TAZOBACTAM 3.375 G in IV NS 0.9% 50 ML IV SCH ×4 (00:44→18:02)
[2017-10-23] MEDS: ACETAMINOPHEN 325 MG TABLET PO SCH ×4 (06:00→18:02)
[2017-10-23] MEDS: oxyCODONE IR immediate release 5 MG PO PRN ×3 (06:12→22:51)
--- NOTE | 2017-10-23 06:16 | NUR ---
ms rj notes pt woke up and complaining of pain on his left arm, told him the tylenol but instead he refused it and asking for his oxy ir 10 mg. vital signs within normal limit. will continue monitoring.
--- NOTE | 2017-10-23 07:00 | NUR ---
MSRN NOTES. PT WITH FAMILY AT BEDSIDE. PT TOLERATING ROOM AIR WITHOUT S/S OF RESP DISTRESS, BREATHING EQUAL AND UN LABORED. PT WITHOUT S/S OF PAIN. PT BED IN LOWEST LOCKED POSITION WITH HANDRAILSX2 AND CALL ROUSE WITHIN REACH. WILL BRIEF PT AND ASSESS AT BREAKFAST.
--- NOTE | 2017-10-23 07:22 | NUR ---
MS TURN DOWN WORKER CLOSING NOTES PT REMAINS SLEEPING AFTER PAIN MEDS GIVEN . BREATHING EVEN AND NON-LABORED, NOT IN ANY ACUTE DISTRESS . KEPT HIM WARM AND COMFORTABLE AT ALL TIMES. ALL DUE MEDS GIVEN AND ALL NEEDS MET. GIRLFRIEND AT THE BEDSIDE SLEEPING WELL, ENDORSE TO AM NURSE FOR CONTINUITY OF CARE. PLACE CALL LIGHT AT REACH.
[2017-10-23 08:00] VITALS: BP 115/53
[2017-10-23] MEDS: DOCUSATE SODIUM 100 MG CAPSULE PO SCH ×2 (08:39→16:22)
[2017-10-23] MEDS: FOLIC ACID 1 MG TABLET PO SCH (08:40)
[2017-10-23] MEDS: LACTOBACILLUS RHAMNOSUS GG 1 EACH CAP.SPRINK PO SCH ×2 (08:40→16:49)
[2017-10-23] MEDS: PANTOPRAZOLE 40 MG TABLET.DR PO SCH (08:40)
[2017-10-23] MEDS: ALPRAZOLAM 0.25 MG TABLET PO SCH ×3 (08:40→17:00)
[2017-10-23] MEDS: THIAMINE HCL 100 MG TABLET PO SCH (08:40)
[2017-10-23] MEDS: MULTIVITAMINS,THERAGRAN 1 UDTAB TABLET PO SCH (08:41)
[2017-10-23] MEDS: HYDROGEL DRESSING 90 GM TUBE TP SCH (08:45)
[2017-10-23] MEDS: DAKINS QUARTER STRENGTH (0.125%) 480 ML BOTTLE TOP SCH (08:45)
[2017-10-23] MEDS: KETOROLAC TROMETHAMINE INJ 30 MG/ML VIAL IV PRN ×2 (08:45→20:40)
--- NOTE | 2017-10-23 10:00 | NUR ---
DEREK NOTES. PT REFUSING WOUND CARE A THIS TIME. WILL RE CONSIDER LATER.
--- NOTE | 2017-10-23 15:11 | NUR ---
MSRN NOTES. PT RECEIVED [id number] AT 0845. MEDICATION DID NOT SCAN, PHARMACY CONTACTED 1510, UNSCHEDULED ADMINISTRATION ENTERED PER PHARMACY FOR 0845 IN LINE WITH ACTUAL ADMINISTRATION.
[2017-10-23 16:00] VITALS: BP 138/50
--- NOTE | 2017-10-23 16:00 | NUR ---
MSRN NOTES. PT REMAINS REFUSING WOUND CARE AND REQUESTING REST. EDUCATED R/T NEED FOR WOUND CARE. PT TO CONSIDER LATER.
[2017-10-23] MEDS: DULOXETINE HCL 30 MG CAPSULE.DR PO SCH (16:48)
[2017-10-23] MEDS: diphenhydrAMINE HCL 50 MG/ML VIAL IV PRN ×2 (16:50→22:51)
[2017-10-23] MEDS: LORAZEPAM INJ 2 MG/ML VIAL IV PRN (17:00)
--- NOTE | 2017-10-23 18:12 | NUR ---
MSRN NOTES. PT WOUND CARE COMPLETED PER RX.
--- NOTE | 2017-10-23 18:13 | NUR ---
MSRN CLOSING NOTES. PT REMAINS A&0X3, TOLERATING ROOM AIR AND REPORTS PAIN MANAGEMENT ADEQUATE. IC AT R AC INTACT AND OPERATIONAL. WOUND CARE COMPLETED PER RX. PT BED IN LOWEST LOCKED POSITION WITH HANDRAILSX2 AND CALL ROUSE WITHIN REACH. PT FAMILY AT BEDSIDE. ALL DAY NURSE DUTIES ATTENDED TO AND PT IS WITHOUT CONCERN OR COMPLAINT.
--- NOTE | 2017-10-23 19:30 | NUR ---
RN OPENING NOTES PT AWAKE AND RESTING IN BED FAMILY AT BEDSIDE. PT HAS A RIGHT AC #20 IV INTACT AND PATENT. PT AND FATHER AGREED THAT THE PATIENT WILL NO LONGER TAKE ULTRAM, OXYCONTIN 5 OR ATIVAN DURING THE REST OF HIS HOSPITAL STAY. SAFETY PRECAUTIONS IN PLACE, BED IN LOWEST LOCKED POSITION, X2 SIDE RAILS UP, CALL LIGHT WITHIN REACH. WILL CONTINUE TO MONITOR.
[2017-10-23 20:00] VITALS: BP 119/77
[2017-10-23] MEDS: MIRTAZAPINE 15 MG TABLET PO SCH (22:51)
--- NOTE | 2017-10-23 23:23 | NUR ---
RN NOTES PT REFUSED PICTURES OF HIS LEFT ARM/ELBOW. PT STATED THAT HE ALREADY HAD HIS DRESSING CHANGED TODAY. WILL ENDORSE TO DAY SHIFT NURSE TOMORROW.
[2017-10-24] MEDS: PIPERACILLIN /TAZOBACTAM 3.375 G in IV NS 0.9% 50 ML IV SCH ×4 (00:27→17:11)
[2017-10-24] MEDS: LORAZEPAM INJ 2 MG/ML VIAL IV PRN (00:27)
[2017-10-24] MEDS: ACETAMINOPHEN 325 MG TABLET PO SCH ×4 (00:35→17:04)
--- NOTE | 2017-10-24 06:43 | NUR ---
RN CLOSING NOTES PT RESTING IN BED GIRLFRIEND AT BEDSIDE. PT HAS A RIGHT AC #20 IV INTACT AND PATENT. ALL PT NEEDS MET OVERNIGHT. NO COMPLAINTS OF PAIN, SOB, OR DISTRESS AT THIS TIME. SAFETY PRECAUTIONS IN PLACE, BED IN LOWEST LOCKED POSITION, X2 SIDE RAILS UP, CALL LIGHT WITHIN REACH. WILL ENDORSE TO DAY SHIFT NURSE FOR CONTINUITY OF CARE.
--- NOTE | 2017-10-24 07:30 | NUR ---
PT RECEIVED RESTING COMFORTABLY IN BED WITH EYES CLOSED. NO S/S OR C/O PAIN OR DISTRESS NOTED. SIDE RAILS UP X2, CALL LIGHT LEFT WITHIN REACH. WILL CONTINUE PLAN OF CARE.
[2017-10-24 08:21] VITALS: BP 122/69
[2017-10-24] MEDS: PANTOPRAZOLE 40 MG TABLET.DR PO SCH (08:27)
[2017-10-24] MEDS: ALPRAZOLAM 0.25 MG TABLET PO SCH ×3 (08:27→17:05)
[2017-10-24] MEDS: LACTOBACILLUS RHAMNOSUS GG 1 EACH CAP.SPRINK PO SCH ×2 (08:28→17:04)
[2017-10-24] MEDS: THIAMINE HCL 100 MG TABLET PO SCH (08:28)
[2017-10-24] MEDS: MULTIVITAMINS,THERAGRAN 1 UDTAB TABLET PO SCH (08:28)
[2017-10-24] MEDS: FOLIC ACID 1 MG TABLET PO SCH (08:28)
[2017-10-24] MEDS: DOCUSATE SODIUM 100 MG CAPSULE PO SCH ×2 (08:31→17:00)
[2017-10-24] MEDS: HYDROGEL DRESSING 90 GM TUBE TP SCH (08:32)
[2017-10-24] MEDS: DAKINS QUARTER STRENGTH (0.125%) 480 ML BOTTLE TOP SCH (08:32)
[2017-10-24] MEDS: diphenhydrAMINE HCL 50 MG/ML VIAL IV PRN (10:11)
[2017-10-24] MEDS: oxyCODONE IR immediate release 5 MG PO PRN (10:12)
--- NOTE | 2017-10-24 11:47 | NUR ---
GENIA met with pt's parents Jaylyn in regards to resources and referrals to Drug and alcohol treatment programs, Mental health clinics and Medical clinics and urgent care centers. GENIA gave the parents the following referrals to: Drug and alcohol treatment programs, Mental health clinics, Medical clinics, urgent care centers and brochure to [facility] outpatient drug and alcohol treatment program. Pt. requires plastic surgery and needs higher level of care. [facility] [place] [facility] Case management is involved working on the transfer. Pt's parents live in [place] but will be staying in [facility] for a month to assist the pt. in his care.
[2017-10-24] MEDS: KETOROLAC TROMETHAMINE INJ 30 MG/ML VIAL IV PRN ×2 (13:13→21:12)
--- NOTE | 2017-10-24 15:16 | NUR ---
WOUND PHOTOS TAKEN PT REFUSED PHOTOS OF RIGHT ELBOW. NURSING TEACHING PERFORMED BUT PT CONTINUED TO REFUSE. WILL CONTINUE TO MONITOR.
[2017-10-24 16:23] VITALS: BP 109/63
[2017-10-24] MEDS: FENTANYL TD PATCH (25 MCG/HR) 25 MCG/HR PATCH.TD72 TD SCH (17:04)
[2017-10-24] MEDS: DULOXETINE HCL 30 MG CAPSULE.DR PO SCH (17:05)
--- NOTE | 2017-10-24 18:25 | NUR ---
CHANGE OF SHIFT REPORT PT RESTING COMFORTABLY IN BED. NO S/S OR C/O PAIN OR DISTRESS NOTED. SIDE RAILS UP X2, CALL LIGHT LEFT WITHIN REACH. PT KEPT CLEAN, DRY, AND COMFORTABLE. NO SIGNIFICANT CHANGES SINCE PREVIOUS SHIFT. WILL GIVE REPORT TO WILLIAM NEVAREZ.
--- NOTE | 2017-10-24 19:15 | NUR ---
RN NOTES RECEIVED PT AWAKE, SITTING IN BED, ALERT AND ORIENTED X4. LEFT UPPER EXTREMITY WOUND COVERED WITH DRESSING DRY AND INTACT AND KEPT ELEVATED ON A PILLOW. PAIN AT TOLERABLE LEVEL AT THIS TIME. KEPT COMFORTABLE AND ATTENDED. WILL CONTINUE TO MONITOR.
[2017-10-24 19:59] VITALS: BP 111/49
[2017-10-24] MEDS: MIRTAZAPINE 15 MG TABLET PO SCH (22:23)
[2017-10-25] MEDS: PIPERACILLIN /TAZOBACTAM 3.375 G in IV NS 0.9% 50 ML IV SCH ×3 (00:12→12:21)
[2017-10-25] MEDS: diphenhydrAMINE HCL 50 MG/ML VIAL IV PRN ×3 (00:17→20:29)
[2017-10-25] MEDS: oxyCODONE IR immediate release 5 MG PO PRN ×3 (00:17→20:30)
--- NOTE | 2017-10-25 00:17 | NUR ---
RN NOTES PT COMPLAINS OF PAIN ON LEFT ARM, PT PREFERS TO TAKE OXY IR 10MG TAB AND HOLD TYLENOL 650 MG .
[2017-10-25] MEDS: ACETAMINOPHEN 325 MG TABLET PO SCH ×4 (05:24→17:58)
--- NOTE | 2017-10-25 06:25 | NUR ---
RN NOTES PT ASLEEP, ON ROOM AIR AND TOLERATED WELL. VITAL SIGNS STABLE, AFEBRILE. KEPT PAIN AT TOLERABLE LEVEL. KEPT LEFT ARM ELEVATED ON A PILLOW. ALL NEEDS MET. WILL ENDORSE TO MORNING RN FOR CONTINUITY OF CARE
--- NOTE | 2017-10-25 07:30 | NUR ---
RN MS NOTES PT IN BED, ASLEEP, RESPIRATIONS NORMAL, EASY TO AROUSE, ALERT AND ORIENTED, NO COMPLAINT AT THIS TIME, CALL LIGHT WITHIN REACH, DRESSING TO LEFT ARM INTACT AND CLEAN, NEEDS ATTENDED.
[2017-10-25 08:00] VITALS: BP 118/72
[2017-10-25] MEDS: DOCUSATE SODIUM 100 MG CAPSULE PO SCH ×2 (09:00→17:00)
[2017-10-25] MEDS: FOLIC ACID 1 MG TABLET PO SCH (09:47)
[2017-10-25] MEDS: LACTOBACILLUS RHAMNOSUS GG 1 EACH CAP.SPRINK PO SCH ×2 (09:47→16:58)
[2017-10-25] MEDS: PANTOPRAZOLE 40 MG TABLET.DR PO SCH (09:47)
[2017-10-25] MEDS: ALPRAZOLAM 0.25 MG TABLET PO SCH ×3 (09:47→17:00)
[2017-10-25] MEDS: THIAMINE HCL 100 MG TABLET PO SCH (09:47)
[2017-10-25] MEDS: MULTIVITAMINS,THERAGRAN 1 UDTAB TABLET PO SCH (09:47)
[2017-10-25] MEDS: HYDROGEL DRESSING 90 GM TUBE TP SCH (09:49)
[2017-10-25] MEDS: DAKINS QUARTER STRENGTH (0.125%) 480 ML BOTTLE TOP SCH (09:49)
[2017-10-25] MEDS ORDERED: KETOROLAC TROMETHAMINE INJ 30 MG/ML VIAL IM PRN (15:00)
[2017-10-25] MEDS: KETOROLAC TROMETHAMINE INJ 30 MG/ML VIAL IV PRN ×2 (15:07→22:50)
[2017-10-25 16:00] VITALS: BP 126/80
[2017-10-25] MEDS: DULOXETINE HCL 30 MG CAPSULE.DR PO SCH (16:58)
[2017-10-25] MEDS: AMOX/CLAVULANATE 875 MG TABLET PO SCH (18:14)
--- NOTE | 2017-10-25 18:30 | NUR ---
RN MS NOTES PT IN BED, AWAKE, ALERT AND ORIENTED, PAIN MEDICATION GIVEN FOR PAIN MANAGEMENT, NOT IN DISTRESS, SEEN BY VINNY LUMBER STACKER OPERATOR TODAY, PLAN OF CARE DISCUSSED WITH PT, VERBALIZED UNDERSTANDING, WOUND TREATMENT AND DRESING CHANGE DONE ORDERED, ALL NEEDS ATTENDED.
--- NOTE | 2017-10-25 19:27 | NUR ---
RN INITIAL NOTES: Patient in bed, alert, oriented x 4. Family at bedside. Breathing even and unlabored. No complaints of discomfort as of this time. Safety precautions in place. Patient stable as endorsed by the morning shift RN.
[2017-10-25 20:00] VITALS: BP 123/71
--- NOTE | 2017-10-25 20:15 | NUR ---
RN NOTES PATIENT STATES FEELING LESS ANXIOUS. PATIENT ENCOURAGED TO EXPRESS FEELINGS AND EMOTIONS. NO SHARP OBJECTS AT BEDSIDE. PATIENT DENYING SUICIDAL IDEATION.
--- NOTE | 2017-10-25 20:31 | NUR ---
RN NOTES: PATIENT COMPLAINS OF PAIN ON LEFT ARM, PREFERS TO TAKE OXY IR 10MG TAB
[2017-10-25] MEDS: MIRTAZAPINE 15 MG TABLET PO SCH (22:02)
--- NOTE | 2017-10-25 22:51 | NUR ---
RN NOTES: Patient complaining of pain on left arm 11/18. States that the oxycodone IR relieves a bit but then it's not enough. Requested for toradol.
[2017-10-26] MEDS: ACETAMINOPHEN 325 MG TABLET PO SCH ×3 (06:00→12:00)
--- NOTE | 2017-10-26 06:46 | NUR ---
RN CLOSING NOTES: Patient sleeping in bed, easily arousable. Alert, orientedx4. No complaints of pain as of this time. Dressing on L arm intact. Not in any distress. All needs attended to. All due medications given as ordered. Will endorse LYDIA to morning shift RN
[2017-10-26 08:00] VITALS: BP 111/61
--- NOTE | 2017-10-26 08:05 | NUR ---
OPENING NOTE PT IS A&OX4, HAS NO COMPLAINTS OF PAIN. CONTINUES TO SLEEP IN BED. WILL CONTINUE TO MONITOR PT THROUGHOUT SHIFT.
[2017-10-26] MEDS: ALPRAZOLAM 0.25 MG TABLET PO SCH ×2 (09:00→12:54)
[2017-10-26] MEDS: DOCUSATE SODIUM 100 MG CAPSULE PO SCH (09:00)
[2017-10-26] MEDS: FOLIC ACID 1 MG TABLET PO SCH (09:22)
[2017-10-26] MEDS: MULTIVITAMINS,THERAGRAN 1 UDTAB TABLET PO SCH (09:22)
[2017-10-26] MEDS: AMOX/CLAVULANATE 875 MG TABLET PO SCH (09:22)
[2017-10-26] MEDS: LACTOBACILLUS RHAMNOSUS GG 1 EACH CAP.SPRINK PO SCH (09:22)
[2017-10-26] MEDS: PANTOPRAZOLE 40 MG TABLET.DR PO SCH (09:22)
[2017-10-26] MEDS: oxyCODONE IR immediate release 5 MG PO PRN ×3 (09:30→11:04)
[2017-10-26] MEDS: THIAMINE HCL 100 MG TABLET PO SCH (09:31)
[2017-10-26] MEDS: diphenhydrAMINE HCL 50 MG/ML VIAL IV PRN (09:43)
[2017-10-26] MEDS: DAKINS QUARTER STRENGTH (0.125%) 480 ML BOTTLE TOP SCH ×2 (09:49→09:52)
[2017-10-26] MEDS: HYDROGEL DRESSING 90 GM TUBE TP SCH ×2 (09:50→09:53)
[2017-10-26] MEDS: KETOROLAC TROMETHAMINE INJ 30 MG/ML VIAL IV PRN (12:48)
--- NOTE | 2017-10-26 15:40 | NUR ---
RN MS NOTES PT IN BED, AWAKE, ALERT AND ORIENTED, NOT IN DISTRESS, PAIN MEDICATION GIVEN FOR PAIN MANAGEMENT, SEEN BY VINNY PARKING RAMP ATTENDANT, DISCHARGE INSTRUCTIONS, MEDICATION, WOUND CARE AND FOLLOW UP INSTRUCTIONS PROVIDED TO PT AND PARENTS, VERBALIZED UNDERSTANDING, WOUND TREATMENT AND DRESSING CHANGE DONE, WOUND TREATMENT EDUCATION PROVIDED TO PT AND PARENTS, VERBALIZED UNDERSTANDING, BELONGINGS ACCOUNTED FOR, PRESCRIPTION PROVIDED TO PT, EXTRA WOUND DRESSING SUPPLIES PROVIDED TO PT, PT TO FOLLOW UP WITH HIS PCP AND WOUND CLINIC, LEFT WITH PARENTS IN STABLE CONDITION.
== END 2017-10-26 15:30 | disposition home or self-care (01) | DRG 710 ==
LOC: ER 16:18 → MED 18:59 → ICU 10-13 15:43 → MEDSG1 10-14 10:51 → MED 10-20 21:31
PROVIDERS: ADMIT Registered Nurse; ATTEND Registered Nurse
PROC: 0KB80ZZ Excision of Left Upper Arm Muscle, Open Approach (ICD-10-PCS; principal; 2017-10-13 14:00)
PROC: 0KB90ZZ Excision of Right Lower Arm and Wrist Muscle, Open Approach (ICD-10-PCS; 2017-10-17)
PROC: 0KB80ZZ Excision of Left Upper Arm Muscle, Open Approach (ICD-10-PCS; 2017-10-17)
DX: A41.9 Sepsis, unspecified organism (principal); J15.9 Unspecified bacterial pneumonia; F33.2 Major depressive disorder, recurrent severe without psychotic features; E44.1 Mild protein-calorie malnutrition; D72.829 Elevated white blood cell count, unspecified; S50.312A Abrasion of left elbow, initial encounter; I10 Essential (primary) hypertension; J98.11 Atelectasis; L02.414 Cutaneous abscess of left upper limb; L03.114 Cellulitis of left upper limb; W18.30XA Fall on same level, unspecified, initial encounter; Y93.51 Activity, roller skating (inline) and skateboarding; Y92.89 Other specified places as the place of occurrence of the external cause; E87.6 Hypokalemia; Z68.20 Body mass index [BMI] 20.0-20.9, adult; R74.0 Nonspecific elevation of levels of transaminase and lactic acid dehydrogenase [LDH]; F17.210 Nicotine dependence, cigarettes, uncomplicated; F19.10 Other psychoactive substance abuse, uncomplicated; M70.32 Other bursitis of elbow, left elbow; Z59.0 Homelessness; F41.9 Anxiety disorder, unspecified
CPT/HCPCS: 36415; 71045-TC; 71260-TC; 73070-TC; 73090-TC; 73201-TC; 80048-TC; 80074; 80076-TC; 80202-TC; 80305; 83605-TC; 83735-TC; 84100-TC; 84443-TC; 85025-TC; 85610-TC; 85652-TC; 86140-TC; 87040-TC; 87070-TC; 87081-TC; 88305-TC; 88312-TC; 90715; A4216; A4217; A4606; A6248; A6253; A6402; A6403; C9113; J0330; J1100; J1170; J1200; J1885; J2060; J2250; J2270; J2405; J2543; J2704; J3010; J3370; J3411; J3475; J3490; J7030; J7040; J7050; J7060; Q0163; Q9967; Z7610

== ENCOUNTER → 2017-12-15 | Emergency (ER) | payer MEDICAID ==
--- NOTE | 2017-12-15 18:12 | NUR ---
PT WAS ATTEMPTING TO HIT TRIAGE NURSE, SECURITY CALLED TO ESCORT PT OUT OF TRIAGE ROOM
== END | disposition left against medical advice (07) ==
LOC: ER 18:00
DX: Z53.21 Procedure and treatment not carried out due to patient leaving prior to being seen by health care provider (principal)

== ENCOUNTER → 2017-12-15 | Emergency (ER) | payer MEDICAID ==
--- NOTE | 2017-12-15 16:00 | NUR ---
CALLED TO TRIAGE,NO ANSWER
== END | disposition left against medical advice (07) ==
LOC: ER 15:58
DX: Z53.21 Procedure and treatment not carried out due to patient leaving prior to being seen by health care provider (principal)

== ENCOUNTER 2018-04-15 18:55 | Emergency (ER) | payer MEDICAID, OTHER ==
[~2018-04-15] VITALS: Ht 188 cm; Wt 72.6 kg
--- NOTE | 2018-04-15 19:25 | NUR ---
PT BIBFRIEND COMPLAINING OF RIGHT LOWER QUADRANT PAIN RADIATING RIGHT FLANK X1 DAY. PT STATES HE HAD MULTIPLE EPISODES OF VOMITTING EARLIER TODAY. PT ALSO COMPLAINING OF DYSURIA, STATES URINE OUTPUT HAS BEEN LOW PAST FEW DAYS. PT DENIES FEVER, DIARRHEA, SOB, CHEST PAIN. PT AAOX4. RESPIRATIONS EVEN AND UNLABORED. PT APPEARS DIAPHORETIC AND UNCOMFORTABLE. PT PLACED ON MONITOR, WILL CONTINUE TO MONITOR.
--- NOTE | 2018-04-15 19:40 | NUR ---
ER PA AT BEDSIDE FOR EVALUATION
--- NOTE | 2018-04-15 19:45 | NUR ---
IV INITIATED LEFT AC 18G. LABS DRAWN FROM SITE. QUILLER RUNNER AT BEDSIDE FOR COLLECTION. IV INTACT AND PATENT, PLACED ON SALINE LOCK
[2018-04-15] MEDS ORDERED: KETOROLAC TROMETHAMINE INJ 30 MG/ML VIAL ONE ×2 (19:49→22:35)
[2018-04-15] MEDS ORDERED: ONDANSETRON HCL/PF 4 MG/2 ML VIAL ONE (19:49)
--- NOTE | 2018-04-15 19:55 | NUR ---
PT UNABLE TO PROVIDE URINE SPECIMEN AT THIS TIME. ER PA AWARE
[2018-04-15 19:59] LABS: HEMATOCRIT 51 % (39-51); HEMOGLOBIN 17.9 g/dL (13.5-17.5); MEAN CORPUSCULAR VOLUME 97 fL (80-96); RED BLOOD CELL COUNT(AUTO) 5.28 MIL/uL (4.5-6.0)
[2018-04-15 20:00] LABS: BASOPHILS % (AUTO) 0.3 % (0.0-2.0); EOSINOPHILS % (AUTO) 0.1 % (0.0-6.0); LYMPHOCYTES # (AUTO) 0.9 /CMM (0.8-4.8); LYMPHOCYTES % (AUTO) 6.1 % (20.0-44.0); MEAN CORPUSCULAR HGB CONC 35 g/dl (31.0-36.0); MONOCYTES # (AUTO) 1.5 /CMM (0.1-1.30); MONOCYTES % (AUTO) 9.8 % (2.0-12.0); NEUTROPHILS # (AUTO) 12.6 /CMM (1.8-8.9); NEUTROPHILS % (AUTO) 83.7 % (43.0-81.0); PLATELET COUNT (AUTO) 246 /CMM (150-450)
[2018-04-15] MEDS ORDERED: ONDANSETRON HCL/PF 4 MG/2 ML VIAL IVP ONE (20:00)
[2018-04-15] MEDS ORDERED: IV NS 0.9% 1,000 ML BAG IV ONE ×2 (20:00→21:30)
[2018-04-15] MEDS ORDERED: KETOROLAC TROMETHAMINE INJ 30 MG/ML VIAL IV ONE ×2 (20:00→23:00)
[2018-04-15 20:09] LABS: CALCIUM, SERUM 9.6 mg/dL (8.5-10.1); CREATININE 1.4 mg/dL (0.6-1.3); POTASSIUM 4.4 mmol/L (3.5-5.1)
[2018-04-15 20:16] LABS: ALBUMIN 4.9 g/dL (3.4-5.0); BILIRUBIN,DIRECT 0.2 mg/dL (0.0-0.2); TOTAL PROTEIN, SERUM 8.3 g/dL (6.4-8.2)
--- NOTE | 2018-04-15 20:30 | NUR ---
BLADDER SCAN SHOWED 0ML. ROBBY PA AWARE
--- NOTE | 2018-04-15 20:36 | NUR ---
PT BROUGHT BY RADIOLOGY FOR CT
[2018-04-15 20:39] LABS: APPEARANCE,URINE Slightly Cloudy (CLEAR); BILIRUBIN,URINE Negative (NEGATIVE); BLOOD, URINE Small Ery/uL (NEGATIVE); COLOR,URINE Dark (YELLOW); KETONES,URINE 80 (NEGATIVE); LEUKOCYTE ESTERASE ,URINE Negative (NEGATIVE); NITRITE, URINE Negative (NEGATIVE); PROTEIN,URINE >=300 mg/dl (NEGATIVE); UGLUCOSE Negative (NEGATIVE)
--- NOTE | 2018-04-15 20:43 | NUR ---
PT RETURNED FROM CT
[2018-04-15 20:54] LABS: BACTERIA,URINE Rare /HPF (None Seen); SQUAMOUS EPITHELIAL CELL,UR Few /HPF (None Seen); WBC,URINE 0-2 /HPF (0-3)
--- NOTE | 2018-04-15 22:53 | NUR ---
Patient discharged to home in stable condition. Written and verbal after care instructions given. Patient verbalizes understanding of instruction. IV removed. Catheter intact and site benign. Pressure and 4x4 applied to site. No bleeding noted. Pt ambulatory with a steady gait
[2018-04-15 22:55] VITALS: BP 167/89
== END 2018-04-15 22:56 | disposition home or self-care (01) ==
LOC: ER 19:03
DX: N20.0 Calculus of kidney (principal); F17.200 Nicotine dependence, unspecified, uncomplicated; Z98.890 Other specified postprocedural states; Z88.6 Allergy status to analgesic agent; Z60.2 Problems related to living alone
CPT/HCPCS: 36415; 80048-TC; 80076-TC; 81000-TC; 83690-TC; 85025-TC; 87086-TC; J1885; J2405; J7030